=== PATIENT | female | born 1945 | race Caucasian/White ===

== ENCOUNTER → 2016-07-30 | Outpatient (REF) | payer MEDICARE ==
[2016-07-30 18:34] LABS: BASO % 0.4 % (0.0-1.0); EOS # 0.2 K/mm3 (0.0-0.50); EOS % 2.9 % (0.0-3.0); LARGE UNSTAINED CELL # 0.1 K/mm3 (0.0-0.4); LARGE UNSTAINED CELL % 1.7 % (0.0-4.0); LYMPH # 1.1 K/mm3 (1.5-4.5); LYMPH % 16.7 % (24.0-44.0); MEAN CORPUSCULAR HEMOGLOBIN 23.8 pg (27.0-33.0); MEAN CORPUSCULAR HGB CONC 30.2 g/dl (32.0-36.5); MEAN CORPUSCULAR VOLUME 78.7 fl (80.0-96.0); MONO # 0.3 K/mm3 (0.0-0.8); MONO % 5.1 % (0.0-5.0); NEUTROPHILS # 4.7 K/mm3 (1.8-7.7); NEUTROPHILS % 73.1 % (36.0-66.0); PLATELET COUNT, AUTOMATED 163 k/mm3 (150-450); RED CELL DISTRIBUTION WIDTH 15.3 % (11.5-14.5); WHITE BLOOD COUNT 6.4 K/mm3 (4.0-10.0)
[2016-07-30 19:10] LABS: ALBUMIN 3.1 GM/DL (3.2-5.2); ALBUMIN/GLOBULIN RATIO 0.94 (1.00-1.93); BILIRUBIN,TOTAL 0.3 MG/DL (0.2-1.0); CALCIUM LEVEL 8.6 MG/DL (8.8-10.2); CREATININE FOR GFR 1.23 MG/DL (0.55-1.02); GLOMERULAR FILTRATION RATE 45.8 (>39); POTASSIUM SERUM 4.1 MEQ/L (3.5-5.1); TOTAL PROTEIN 6.4 GM/DL (6.4-8.2)
== END | disposition home or self-care (01) ==
LOC: M SFHCCAPE 09:25
PROVIDERS: ATTEND Physician Assistant
DX: I10 Essential (primary) hypertension (principal); E11.9 Type 2 diabetes mellitus without complications; E78.5 Hyperlipidemia, unspecified; E55.9 Vitamin D deficiency, unspecified

== ENCOUNTER → 2016-08-27 | Outpatient (REF) | payer MEDICARE ==
[2016-08-27 14:42] LABS: PERCENT SATURATION 7.7 % (13.2-37.4)
== END ==
LOC: M LAB REF 13:40
PROVIDERS: ATTEND Internal Medicine Nephrology
DX: D50.9 Iron deficiency anemia, unspecified (principal)

== ENCOUNTER → 2016-11-11 | Outpatient (REF) | payer MEDICARE ==
[2016-11-11 18:46] LABS: ALBUMIN 3.1 GM/DL (3.2-5.2); ALBUMIN/GLOBULIN RATIO 0.94 (1.00-1.93); BILIRUBIN,TOTAL 0.2 MG/DL (0.2-1.0); CALCIUM LEVEL 8.8 MG/DL (8.8-10.2); CREATININE FOR GFR 1.25 MG/DL (0.55-1.02); GLOMERULAR FILTRATION RATE 44.8 (>39); PERCENT SATURATION 12.1 % (13.2-37.4); TOTAL PROTEIN 6.4 GM/DL (6.4-8.2)
[2016-11-11 19:57] LABS: BASO # 0.1 K/mm3 (0.0-0.2); BASO % 0.8 % (0.0-1.0); EOS # 0.1 K/mm3 (0.0-0.50); LARGE UNSTAINED CELL # 0.1 K/mm3 (0.0-0.4); LARGE UNSTAINED CELL % 1.7 % (0.0-4.0); LYMPH # 1.6 K/mm3 (1.5-4.5); LYMPH % 23.7 % (24.0-44.0); MEAN CORPUSCULAR HEMOGLOBIN 26.9 pg (27.0-33.0); MEAN CORPUSCULAR HGB CONC 32.1 g/dl (32.0-36.5); MEAN CORPUSCULAR VOLUME 83.8 fl (80.0-96.0); MONO # 0.4 K/mm3 (0.0-0.8); MONO % 5.1 % (0.0-5.0); NEUTROPHILS # 4.6 K/mm3 (1.8-7.7); NEUTROPHILS % 66.7 % (36.0-66.0); PLATELET COUNT, AUTOMATED 168 k/mm3 (150-450); RED CELL DISTRIBUTION WIDTH 16.6 % (11.5-14.5); WHITE BLOOD COUNT 6.9 K/mm3 (4.0-10.0)
== END ==
LOC: M SFHCCAPE 07:25
PROVIDERS: ATTEND Physician Assistant
DX: D64.9 Anemia, unspecified (principal)

== ENCOUNTER → 2017-02-17 | Outpatient (REF) | payer MEDICARE ==
[2017-02-17 17:05] LABS: ALBUMIN 3.3 GM/DL (3.2-5.2); ALBUMIN/GLOBULIN RATIO 0.97 (1.00-1.93); BILIRUBIN,TOTAL 0.3 MG/DL (0.2-1.0); CALCIUM LEVEL 9.2 MG/DL (8.8-10.2); CREATININE FOR GFR 1.31 MG/DL (0.55-1.02); GLOMERULAR FILTRATION RATE 42.5 (>39); POTASSIUM SERUM 4.5 MEQ/L (3.5-5.1); TOTAL PROTEIN 6.7 GM/DL (6.4-8.2)
[2017-02-17 19:09] LABS: BASO % 0.3 % (0.0-1.0); EOS # 0.2 K/mm3 (0.0-0.50); EOS % 3.3 % (0.0-3.0); LARGE UNSTAINED CELL # 0.1 K/mm3 (0.0-0.4); LARGE UNSTAINED CELL % 1.5 % (0.0-4.0); LYMPH # 1.4 K/mm3 (1.5-4.5); MEAN CORPUSCULAR HEMOGLOBIN 28.7 pg (27.0-33.0); MEAN CORPUSCULAR HGB CONC 34.2 g/dl (32.0-36.5); MEAN CORPUSCULAR VOLUME 83.9 fl (80.0-96.0); MONO # 0.4 K/mm3 (0.0-0.8); MONO % 5.2 % (0.0-5.0); NEUTROPHILS # 5.1 K/mm3 (1.8-7.7); NEUTROPHILS % 70.7 % (36.0-66.0); PLATELET COUNT, AUTOMATED 179 k/mm3 (150-450); RED CELL DISTRIBUTION WIDTH 14.7 % (11.5-14.5); WHITE BLOOD COUNT 7.1 K/mm3 (4.0-10.0)
== END ==
LOC: M SFHCCAPE 09:25
PROVIDERS: ATTEND Physician Assistant
DX: R74.8 Abnormal levels of other serum enzymes (principal); D64.9 Anemia, unspecified; I10 Essential (primary) hypertension; E11.9 Type 2 diabetes mellitus without complications; E78.5 Hyperlipidemia, unspecified; E55.9 Vitamin D deficiency, unspecified

== ENCOUNTER → 2017-04-27 | Outpatient (REF) | payer MEDICARE ==
[2017-04-27 17:31] LABS: MEAN CORPUSCULAR HEMOGLOBIN 28.2 pg (27.0-33.0); MEAN CORPUSCULAR HGB CONC 32.2 g/dl (32.0-36.5); MEAN CORPUSCULAR VOLUME 87.6 fl (80.0-96.0); PLATELET COUNT, AUTOMATED 177 10^3/uL (150-450); RED CELL DISTRIBUTION WIDTH 14.3 % (11.5-14.5)
[2017-04-27 17:57] LABS: CALCIUM LEVEL 9.1 MG/DL (8.8-10.2); CREATININE FOR GFR 1.54 MG/DL (0.55-1.02); GLOMERULAR FILTRATION RATE 35.3 (>39); POTASSIUM SERUM 4.1 MEQ/L (3.5-5.1)
== END ==
LOC: M LABDRWCV 16:30
PROVIDERS: ATTEND Internal Medicine Cardiovascular Disease
DX: I48.0 Paroxysmal atrial fibrillation (principal); E11.59 Type 2 diabetes mellitus with other circulatory complications; Z98.61 Coronary angioplasty status

== ENCOUNTER → 2017-05-18 | Outpatient (CLI) | payer MEDICARE ==
--- NOTE | 2017-05-19 16:08 | REP ---
BILATERAL KNEE SERIES: Five views of bilateral knees performed. No fracture or dislocation is seen bilaterally. On the right, there is moderate lateral joint space narrowing with subchondral sclerosis. There is mild diffuse spurring. There is slight medial joint space narrowing. There is mild diffuse chondrocalcinosis. There is mild patellofemoral compartment narrowing with subchondral sclerosis. There is mild superior patellar spurring. There is a small joint effusion. There are mild vascular calcifications posteriorly. On the left, there is mild medial joint space narrowing with subchondral sclerosis. There is mild diffuse spurring. There is mild patellofemoral compartment narrowing with subchondral sclerosis as well as a small spur of the superior pole of the patella. IMPRESSION: Bilateral degenerative changes as above. Small effusion on the right,
== END ==
LOC: M CLY 14:53
PROVIDERS: ATTEND Physician Assistant
DX: M17.0 Bilateral primary osteoarthritis of knee (principal); M25.461 Effusion, right knee

== ENCOUNTER → 2017-07-21 | Outpatient (CLI) | payer MEDICARE | LOC: M CLY 14:40 | DX: R05 Cough (principal); J84.10 Pulmonary fibrosis, unspecified | CPT/HCPCS: 71046 ==

== ENCOUNTER → 2017-09-15 | Outpatient (REF) | payer MEDICARE | LOC: M SFHCCAPE 12:19 | DX: L03.114 Cellulitis of left upper limb (principal) | CPT/HCPCS: 87070; 87186 ==

== ENCOUNTER → 2017-10-27 | Outpatient (REF) | payer MEDICARE ==
[2017-10-28 10:47] LABS: ALBUMIN 3.2 GM/DL (3.2-5.2); ALBUMIN/GLOBULIN RATIO 0.97 (1.00-1.93); ALKALINE PHOSPHATASE 136 U/L (45-117); ALT/SGPT 24 U/L (12-78); AST/SGOT 19 U/L (7-37); BILIRUBIN,DIRECT 0.1 MG/DL (0.0-0.2); BILIRUBIN,TOTAL 0.3 MG/DL (0.2-1.0); CHOLESTEROL LEVEL 149 MG/DL (<200); CPK CREATINE PHOSPHOKINASE 113 U/L (26-192); HDL CHOLESTEROL 39 MG/DL (>40); LDL CHOLESTEROL 61.4 MG/DL (<100); NON-HDL-C 110 MG/DL; TOTAL PROTEIN 6.5 GM/DL (6.4-8.2); TRIGLYCERIDES LEVEL 243 MG/DL (<150)
== END ==
LOC: M LAB REF 10:03
DX: E78.5 Hyperlipidemia, unspecified (principal); Z95.1 Presence of aortocoronary bypass graft
CPT/HCPCS: 82550

== ENCOUNTER → 2017-12-20 | Outpatient (REF) | payer MEDICARE ==
[2017-12-20 19:21] LABS: FERRITIN 21 NG/ML (8-252); IRON (FE) 46 UG/DL (50-170); PERCENT SATURATION 14.7 % (13.2-45.0); TOTAL IRON BINDING CAPACITY 312 UG/DL (250-450)
== END ==
LOC: M LAB REF 17:25
DX: D50.9 Iron deficiency anemia, unspecified (principal)
CPT/HCPCS: 83550

== ENCOUNTER → 2018-03-03 | Outpatient (REF) | payer MEDICARE ==
[2018-03-03 16:43] LABS: BASO % 0.4 % (0.0-1.0); EOS # 0.2 10^3/uL (0.0-0.50); EOS % 3.2 % (0.0-3.0); HEMATOCRIT 34.8 % (36.0-47.0); HEMOGLOBIN 10.9 g/dl (12.0-15.5); IMMATURE GRANULOCYTE % 0.6 % (0-3.0); LYMPH # 1.3 10^3/uL (1.5-4.5); LYMPH % 18.5 % (24.0-44.0); MEAN CORPUSCULAR HGB CONC 31.3 g/dl (32.0-36.5); MEAN CORPUSCULAR VOLUME 89.5 fl (80.0-96.0); MONO # 0.5 10^3/uL (0.0-0.8); MONO % 6.6 % (0.0-5.0); NEUTROPHILS # 5.1 10^3/uL (1.8-7.7); NEUTROPHILS % 70.7 % (36.0-66.0); PLATELET COUNT, AUTOMATED 154 10^3/uL (150-450); RED BLOOD COUNT 3.89 10^6/uL (4.00-5.40); RED CELL DISTRIBUTION WIDTH 14.9 % (11.5-14.5); WHITE BLOOD COUNT 7.2 10^3/uL (4.0-10.0)
[2018-03-03 17:04] LABS: ALBUMIN/GLOBULIN RATIO 0.91 (1.00-1.93); ALKALINE PHOSPHATASE 155 U/L (45-117); ALT/SGPT 22 U/L (12-78); ANION GAP 9 MEQ/L (8-16); AST/SGOT 15 U/L (7-37); BILIRUBIN,TOTAL 0.2 MG/DL (0.2-1.0); BLOOD UREA NITROGEN 34 MG/DL (7-18); CALCIUM LEVEL 8.5 MG/DL (8.8-10.2); CARBON DIOXIDE LEVEL 27 MEQ/L (21-32); CHLORIDE LEVEL 106 MEQ/L (98-107); CHOLESTEROL LEVEL 151 MG/DL (<200); CHOLESTEROL RISK RATIO 4.575 (<5); CREATININE FOR GFR 1.44 MG/DL (0.55-1.30); FREE T4 1.18 NG/DL (0.76-1.46); GLUCOSE, FASTING 143 MG/DL (70-100); HDL CHOLESTEROL 33 MG/DL (>40); LDL CHOLESTEROL 61 MG/DL (<100); NON-HDL-C 118 MG/DL; POTASSIUM SERUM 4.2 MEQ/L (3.5-5.1); SODIUM LEVEL 142 MEQ/L (136-145); TOTAL PROTEIN 6.3 GM/DL (6.4-8.2); TRIGLYCERIDES LEVEL 287 MG/DL (<150); URIC ACID 6.7 MG/DL (2.6-6.0)
[2018-03-03 17:05] LABS: ESTIMATED AVERAGE GLUCOSE 166 MG/DL (60-110); HEMOGLOBIN A1c 7.4 %
== END ==
LOC: M SFHCCAPE 08:36
DX: E78.5 Hyperlipidemia, unspecified (principal); E11.9 Type 2 diabetes mellitus without complications; I10 Essential (primary) hypertension
CPT/HCPCS: 84443

== ENCOUNTER → 2018-07-26 | Outpatient (REF) | payer MEDICARE ==
[2018-07-26 17:58] LABS: BASO % 0.5 % (0.0-1.0); EOS # 0.3 10^3/uL (0.0-0.50); EOS % 3.4 % (0.0-3.0); HEMOGLOBIN 11.5 g/dl (12.0-15.5); LYMPH # 1.4 10^3/uL (1.5-4.5); LYMPH % 17.9 % (24.0-44.0); MEAN CORPUSCULAR HEMOGLOBIN 29.1 pg (27.0-33.0); MEAN CORPUSCULAR HGB CONC 31.9 g/dl (32.0-36.5); MEAN CORPUSCULAR VOLUME 91.1 fl (80.0-96.0); MONO # 0.5 10^3/uL (0.0-0.8); MONO % 5.9 % (0.0-5.0); NEUTROPHILS # 5.8 10^3/uL (1.8-7.7); NEUTROPHILS % 71.7 % (36.0-66.0); PLATELET COUNT, AUTOMATED 172 10^3/uL (150-450); RED BLOOD COUNT 3.95 10^6/uL (4.00-5.40)
[2018-07-26 18:15] LABS: CREATININE, URINE 50.9 MG/DL; MALB URINE SIEMENS 10.5 MG/L; MAU/CREAT RATIO 20.6 MCG/MG (0.0-30.0)
[2018-07-26 18:35] LABS: ALBUMIN 3.3 GM/DL (3.2-5.2); ALT/SGPT 28 U/L (12-78); BILIRUBIN,DIRECT < 0.1 MG/DL (0.0-0.2); BILIRUBIN,TOTAL 0.3 MG/DL (0.2-1.0); BLOOD UREA NITROGEN 32 MG/DL (7-18); CALCIUM LEVEL 8.8 MG/DL (8.8-10.2); CARBON DIOXIDE LEVEL 24 MEQ/L (21-32); CHLORIDE LEVEL 105 MEQ/L (98-107); CHOLESTEROL LEVEL 167 MG/DL (<200); CHOLESTEROL RISK RATIO 4.638 (<5); CREATININE FOR GFR 1.68 MG/DL (0.55-1.30); GAMMA GLUTAMYLTRANSPEPTIDASE 45 U/L (5-55); GLOMERULAR FILTRATION RATE 31.8 (>39); GLUCOSE, FASTING 130 MG/DL (70-100); HDL CHOLESTEROL 36 MG/DL (>40); LDL CHOLESTEROL 59 MG/DL (<100); NON-HDL-C 131 MG/DL; POTASSIUM SERUM 4.6 MEQ/L (3.5-5.1); SODIUM LEVEL 138 MEQ/L (136-145); TOTAL PROTEIN 6.5 GM/DL (6.4-8.2); TRIGLYCERIDES LEVEL 358 MG/DL (<150)
[2018-07-27 08:58] LABS: TOTAL 25(OH) VITAMIN D 92.7 NG/ML (30.0-100.0)
== END ==
LOC: M SFHCCAPE 08:34
PROVIDERS: ATTEND Physician Assistant
DX: E78.5 Hyperlipidemia, unspecified (principal); R74.8 Abnormal levels of other serum enzymes; E11.9 Type 2 diabetes mellitus without complications; E55.9 Vitamin D deficiency, unspecified

== ENCOUNTER → 2018-08-09 | Outpatient (CLI) | payer MEDICARE ==
--- NOTE | 2018-08-09 15:44 | REP ---
Chest two views HISTORY: Acute respiratory infection Comparison: 07/21/2017 A calcified granuloma is present in the left upper lobe. The right lung is clear. The cardiac silhouette is enlarged. The pulmonary vasculature is normal in appearance. Degenerative change is present in the thoracic spine. IMPRESSION: Cardiomegaly.
== END ==
LOC: M CLY 14:47
PROVIDERS: ATTEND Physician Assistant
DX: I51.7 Cardiomegaly (principal); J22 Unspecified acute lower respiratory infection

== ENCOUNTER → 2018-09-20 | Outpatient (CLI) | payer MEDICARE ==
--- NOTE | 2018-09-20 19:41 | REP ---
BILATERAL LOWER EXTREMITY ARTERIAL DOPPLER ULTRASOUND: Real-time ultrasound evaluation and duplex Doppler interrogation of bilateral lower extremity arterial systems is performed. LIUDMILA right less than 0.7 and left 0.65. There is severe atherosclerotic plaquing diffusely bilaterally. Iliac vessels could not be visualized due to patient body habitus. There are monophasic wave forms bilaterally in all of the lower extremity arteries suggesting more proximal iliac narrowing bilaterally. Elevated peak systolic velocities in the mid to distal right superficial femoral arteries suggest significant stenosis at those locations. There is also occlusion noted of the proximal left superficial femoral artery which is reconstituted via the profunda collateral vessels distally. RIGHT LEFT Common femoral artery 162.8 cm/s 30.2 cm/s Profunda 72.7 cm/s 122.9 cm/s Proximal SFA 168.3 cm/s occluded Mid SFA 237 cm/s 60 cm/s Distal SFA 249.5 cm/s 61.8 cm/s Popliteal 49.5 cm/s 36.3 cm/s Proximal DOMO 59.3 cm/s 18.7 cm/s Tibioperoneal trunk 40.3 cm/s 35.9 cm/s Proximal COMMUNITY WORKER 22 cm/s 28.7 cm/s Distal COMMUNITY WORKER 37.9 cm/s 34.5 cm/s Distal DOMO 56.9 cm/s 12.1 cm/s IMPRESSION: Severe atherosclerotic plaquing and narrowing bilaterally with apparent significant stenosis of the mid to distal right superficial femoral artery. There is occlusion of the proximal left superficial femoral artery with reconstitution of the more distal superficial femoral artery. Electronically Signed by Bradley Foreman MD 09/21/2018 10:34 A
== END ==
LOC: M RAD 13:18
PROVIDERS: ATTEND Surgery Vascular Surgery
DX: I70.213 Atherosclerosis of native arteries of extremities with intermittent claudication, bilateral legs (principal)

== ENCOUNTER → 2018-10-13 | Outpatient (REF) | payer MEDICARE | LOC: M LAB REF 13:26 | PROVIDERS: ATTEND Internal Medicine Nephrology | DX: D50.9 Iron deficiency anemia, unspecified (principal) ==

== ENCOUNTER → 2018-10-17 | Outpatient (CLI) | payer MEDICARE ==
[~2018-10-17] MED LIST: BUPIVACAINE HCL 0.5% 10 ML VIAL As Ordered ONE; HEPARIN 1,000 UNITS/ML 10ML VIAL (FOR RADIOLOGY& DIALYSIS ONLY) As Ordered ONE; ISOVUE-300 61% 100ML VIAL (Q9967) As Ordered ONE; LIDOCAINE 2% MDV 20 ML VIAL As Ordered ONE; MIDAZOLAM INJ 2 MG/2 ML VIAL (J2250) As Ordered ONE; diphenhydrAMINE INJ 50MG/ML VIAL (J1200) As Ordered ONE; fentaNYL 100 MCG/2 ML INJECTION (J3010) As Ordered ONE
--- NOTE | 2018-11-05 12:12 | REPIR ---
DATE OF PROCEDURE: 10/17/2018 ATTENDING SURGEON: Jeffrey Kim MD PREOPERATIVE DIAGNOSIS: Bilateral lower extremity claudication, right greater left. POSTOPERATIVE DIAGNOSIS: Bilateral lower extremity claudication, right greater left. PROCEDURE: Left common femoral arterial cannulation, selective right common femoral artery catheter placement, right lower extremity angiogram, Mynx closure of the left common femoral arteriotomy. DESCRIPTION OF PROCEDURE: The patient was taken to the angiography suite, placed supine, and prepped and draped in a standard surgical fashion. The left common femoral artery was cannulated. Catheter was advanced up and over the bifurcation, placed in the right common femoral artery, and a right lower extremity angiogram was performed. This showed severe atherosclerotic arterial occlusive disease. Catheter was then removed, and a Mynx closure device was used to close the arteriotomy in the left common femoral artery with an additional 10 minutes of adjunctive pressure applied for hemostasis. Dressings were then applied. The patient tolerated the procedure well. All instrument, sponge, and needle counts were correct at the end of the case. There were no complications. Dr. Kmi was present for and directed the entire case. The patient was transferred to the holding area and subsequent discharged in stable condition.
== END | disposition home or self-care (01) ==
LOC: M IRPRO 08:44
PROVIDERS: ATTEND Surgery Vascular Surgery
DX: I70.211 Atherosclerosis of native arteries of extremities with intermittent claudication, right leg (principal)
CPT/HCPCS: 36246; 75710; C1760; C1769; C1887; C1894; G0269; Q9967

== ENCOUNTER 2018-12-13 18:06 | Emergency (ER) | payer MEDICARE ==
[~2018-12-13] VITALS: Ht 152.4 cm; Wt 109.0 kg
[2018-12-13] MEDS ORDERED: MULTCAP PO (19:21)
[2018-12-13] MEDS ORDERED: ASPI81TA85 PO (19:21)
[2018-12-13] MEDS ORDERED: MAGN400T2 PO (19:21)
[2018-12-13] MEDS ORDERED: ALLO10TA PO (19:21)
[2018-12-13] MEDS ORDERED: LISI-672 PO (19:21)
[2018-12-13] MEDS ORDERED: XARE15TA PO (19:21)
[2018-12-13] MEDS ORDERED: VITA50005 PO (19:21)
[2018-12-13] MEDS ORDERED: GLIP5TAB20 PO (19:21)
[2018-12-13] MEDS ORDERED: SPIR1TAB34 PO (19:21)
[2018-12-13] MEDS ORDERED: IRON1TAB2 PO (19:21)
[2018-12-13] MEDS ORDERED: FISH1000 PO (19:21)
[2018-12-13] MEDS ORDERED: OMEP40CA2 PO (19:21)
[2018-12-13] MEDS ORDERED: POTA10CA32 PO (19:21)
[2018-12-13] MEDS ORDERED: ROSU5TAB5 PO (19:21)
[2018-12-13] MEDS ORDERED: CBD OIL PO (19:21)
[2018-12-13] MEDS ORDERED: AMLO5TAB6 PO (19:21)
[2018-12-13] MEDS ORDERED: CARV12.5 PO (19:21)
[2018-12-13] MEDS ORDERED: COLA100C5 PO (19:21)
[2018-12-13 20:57] LABS: CREATININE FOR GFR 1.62 MG/DL (0.55-1.30); GLOMERULAR FILTRATION RATE 33.1 (>39); POTASSIUM SERUM 6.7 MEQ/L (3.5-5.1)
[2018-12-13 21:20] VITALS: BP 141/63
[2018-12-13] MEDS ORDERED: SOD POLYSTYRENE SULFONATE SUSP 15 GM/60 ML UD PO ONE (22:00)
== END 2018-12-13 21:28 | disposition home or self-care (01) ==
LOC: M ED 18:06
DX: E87.5 Hyperkalemia (principal); I48.91 Unspecified atrial fibrillation; I10 Essential (primary) hypertension; K21.9 Gastro-esophageal reflux disease without esophagitis; D50.9 Iron deficiency anemia, unspecified; Z88.6 Allergy status to analgesic agent; Z79.899 Other long term (current) drug therapy; Z79.01 Long term (current) use of anticoagulants; Z79.82 Long term (current) use of aspirin; I70.213 Atherosclerosis of native arteries of extremities with intermittent claudication, bilateral legs

== ENCOUNTER → 2018-12-13 | Outpatient (CLI) | payer MEDICARE ==
[~2018-12-13] MED LIST changes: +ALLO10TA PO; +AMLO5TAB6 PO; +ASPI81TA85 PO; -BUPIVACAINE HCL 0.5% 10 ML VIAL As Ordered ONE; +CARV12.5 PO; +CBD OIL PO; +COLA100C5 PO; +FISH1000 PO; +GLIP5TAB20 PO; -HEPARIN 1,000 UNITS/ML 10ML VIAL (FOR RADIOLOGY& DIALYSIS ONLY) As Ordered ONE; +IRON1TAB2 PO; -ISOVUE-300 61% 100ML VIAL (Q9967) As Ordered ONE; -LIDOCAINE 2% MDV 20 ML VIAL As Ordered ONE; +LISI-672 PO; +MAGN400T2 PO; -MIDAZOLAM INJ 2 MG/2 ML VIAL (J2250) As Ordered ONE; +MULTCAP PO; +OMEP40CA2 PO; +POTA10CA32 PO; +ROSU5TAB5 PO; +SPIR1TAB34 PO; +VITA50005 PO; +XARE15TA PO; -diphenhydrAMINE INJ 50MG/ML VIAL (J1200) As Ordered ONE; -fentaNYL 100 MCG/2 ML INJECTION (J3010) As Ordered ONE
[2018-12-13 15:32] LABS: BASO % 0.2 % (0.0-1.0); EOS # 0.2 10^3/uL (0.0-0.50); EOS % 2.3 % (0.0-3.0); HEMATOCRIT 38.7 % (36.0-47.0); HEMOGLOBIN 12.4 g/dl (12.0-15.5); LYMPH # 1.4 10^3/uL (1.5-4.5); LYMPH % 14.1 % (24.0-44.0); MEAN CORPUSCULAR HEMOGLOBIN 29.7 pg (27.0-33.0); MEAN CORPUSCULAR VOLUME 92.8 fl (80.0-96.0); MONO # 0.5 10^3/uL (0.0-0.8); MONO % 5.2 % (0.0-5.0); NEUTROPHILS # 7.4 10^3/uL (1.8-7.7); NEUTROPHILS % 77.8 % (36.0-66.0); PLATELET COUNT, AUTOMATED 151 10^3/uL (150-450); RED BLOOD COUNT 4.17 10^6/uL (4.00-5.40); WHITE BLOOD COUNT 9.6 10^3/uL (4.0-10.0)
[2018-12-13 16:13] LABS: CALCIUM LEVEL 9.4 MG/DL (8.8-10.2); CREATININE FOR GFR 1.6 MG/DL (0.55-1.30); GLOMERULAR FILTRATION RATE 33.5 (>39); POTASSIUM SERUM 6.4 MEQ/L (3.5-5.1)
== END ==
LOC: M LAB 15:02
PROVIDERS: ATTEND Physician Assistant
DX: I70.213 Atherosclerosis of native arteries of extremities with intermittent claudication, bilateral legs (principal)

== ENCOUNTER → 2018-12-14 | Outpatient (REF) | payer MEDICARE ==
[2018-12-14 17:15] LABS: MAGNESIUM LEVEL 1.6 MG/DL (1.8-2.4); POTASSIUM SERUM 5.4 MEQ/L (3.5-5.1)
== END ==
LOC: M SFHCCAPE 11:58
PROVIDERS: ATTEND Physician Assistant
DX: E87.5 Hyperkalemia (principal)

== ENCOUNTER → 2018-12-15 | Outpatient (REF) | payer MEDICARE ==
[2018-12-15 16:58] LABS: MAGNESIUM LEVEL 1.7 MG/DL (1.8-2.4); POTASSIUM SERUM 5.3 MEQ/L (3.5-5.1)
== END ==
LOC: M SFHCCAPE 11:34
PROVIDERS: ATTEND Physician Assistant
DX: E87.5 Hyperkalemia (principal); E83.42 Hypomagnesemia

== ENCOUNTER → 2018-12-19 | Outpatient (REF) | payer MEDICARE ==
[~2018-12-19] MED LIST changes: -OMEP40CA2 PO; +OMEP40CA97 PO
[2018-12-19 17:00] LABS: MAGNESIUM LEVEL 1.7 MG/DL (1.8-2.4); POTASSIUM SERUM 5.4 MEQ/L (3.5-5.1)
== END ==
LOC: M SFHCCAPE 11:28
PROVIDERS: ATTEND Physician Assistant
DX: E87.6 Hypokalemia (principal)

== ENCOUNTER → 2018-12-22 | Outpatient (REF) | payer MEDICARE ==
[~2018-12-22] MED LIST changes: +OMEP40CA2 PO; -OMEP40CA97 PO
== END ==
LOC: M SFHCCAPE 10:34
PROVIDERS: ATTEND Physician Assistant
DX: E87.6 Hypokalemia (principal)

== ENCOUNTER → 2018-12-27 | Outpatient (REF) | payer MEDICARE ==
[2018-12-27 16:59] LABS: MAGNESIUM LEVEL 1.9 MG/DL (1.8-2.4); POTASSIUM SERUM 5.2 MEQ/L (3.5-5.1)
== END ==
LOC: M SFHCCAPE 10:53
PROVIDERS: ATTEND Physician Assistant
DX: E87.5 Hyperkalemia (principal)

== ENCOUNTER → 2019-01-02 | Outpatient (REF) | payer MEDICARE | LOC: M SFHCCAPE 10:54 | PROVIDERS: ATTEND Physician Assistant | DX: E87.5 Hyperkalemia (principal) ==

== ENCOUNTER → 2019-01-09 | Outpatient (REF) | payer MEDICARE | LOC: M SFHCCAPE 10:59 | PROVIDERS: ATTEND Physician Assistant | DX: E87.5 Hyperkalemia (principal) ==

== ENCOUNTER → 2019-05-03 | Outpatient (REF) | payer MEDICARE ==
[~2019-05-03] MED LIST changes: -OMEP40CA2 PO; +OMEP40CA97 PO
[2019-05-03 18:06] LABS: BASO % 0.6 % (0.0-1.0); EOS # 0.2 10^3/uL (0.0-0.5); EOS % 3.3 % (0.0-3.0); HEMATOCRIT 35.4 % (36.0-47.0); HEMOGLOBIN 11.2 g/dl (12.0-15.5); LYMPH # 1.3 10^3/uL (1.5-5.0); LYMPH % 19.8 % (24.0-44.0); MEAN CORPUSCULAR HEMOGLOBIN 29.2 pg (27.0-33.0); MEAN CORPUSCULAR HGB CONC 31.6 g/dl (32.0-36.5); MEAN CORPUSCULAR VOLUME 92.4 fl (80.0-96.0); MONO # 0.4 10^3/uL (0.0-0.8); MONO % 6.6 % (0.0-5.0); NEUTROPHILS # 4.6 10^3/uL (1.5-8.5); NEUTROPHILS % 68.9 % (36.0-66.0); PLATELET COUNT, AUTOMATED 151 10^3/uL (150-450); RED BLOOD COUNT 3.83 10^6/uL (4.00-5.40); WHITE BLOOD COUNT 6.7 10^3/uL (4.0-10.0)
[2019-05-03 18:12] LABS: BILIRUBIN,TOTAL 0.4 MG/DL (0.2-1.0); CHOLESTEROL RISK RATIO 4.2 (<5); CREATININE FOR GFR 1.58 MG/DL (0.55-1.30); POTASSIUM SERUM 4.5 MEQ/L (3.5-5.1); THYROID STIMULATING HORMONE 1.3 uIU/ML (0.358-3.740); TOTAL PROTEIN 6.2 GM/DL (6.4-8.2)
[2019-05-03 18:16] LABS: TOTAL 25(OH) VITAMIN D 96.1 NG/ML (30.0-100.0)
[2019-05-03 18:31] LABS: CREATININE, URINE 65.3 MG/DL; MALB URINE SIEMENS 17.9 MG/L; MAU/CREAT RATIO 27.4 MCG/MG (0.0-30.0)
[2019-05-03 19:03] LABS: HEMOGLOBIN A1c 7.8 %
== END ==
LOC: M SFHCCAPE 10:46
PROVIDERS: ATTEND Physician Assistant
DX: E78.5 Hyperlipidemia, unspecified (principal); E11.9 Type 2 diabetes mellitus without complications; E55.9 Vitamin D deficiency, unspecified

== ENCOUNTER → 2019-08-14 | Outpatient (REF) | payer MEDICARE ==
[2019-08-14 16:49] LABS: BASO # 0.1 10^3/uL (0.0-0.2); BASO % 0.6 % (0.0-1.0); EOS # 0.3 10^3/uL (0.0-0.5); EOS % 3.7 % (0.0-3.0); HEMOGLOBIN 11.7 g/dl (12.0-15.5); LYMPH # 1.2 10^3/uL (1.5-5.0); LYMPH % 14.9 % (24.0-44.0); MEAN CORPUSCULAR HEMOGLOBIN 30.1 pg (27.0-33.0); MEAN CORPUSCULAR HGB CONC 32.5 g/dl (32.0-36.5); MEAN CORPUSCULAR VOLUME 92.5 fl (80.0-96.0); MONO # 0.5 10^3/uL (0.0-0.8); MONO % 5.8 % (0.0-5.0); NEUTROPHILS % 73.9 % (36.0-66.0); PLATELET COUNT, AUTOMATED 162 10^3/uL (150-450); RED BLOOD COUNT 3.89 10^6/uL (4.00-5.40); WHITE BLOOD COUNT 8.1 10^3/uL (4.0-10.0)
[2019-08-14 17:15] LABS: ALBUMIN 3.1 GM/DL (3.2-5.2); BILIRUBIN,TOTAL 0.3 MG/DL (0.2-1.0); CALCIUM LEVEL 8.8 MG/DL (8.8-10.2); CHOLESTEROL RISK RATIO 3.815 (<5); CREATININE FOR GFR 1.37 MG/DL (0.55-1.30); GLOMERULAR FILTRATION RATE 40.1 (>39); POTASSIUM SERUM 4.8 MEQ/L (3.5-5.1); TOTAL PROTEIN 6.5 GM/DL (6.4-8.2)
[2019-08-14 17:26] LABS: CREATININE, URINE 30.7 MG/DL; MAU/CREAT RATIO 104.2 MCG/MG (0.0-30.0)
[2019-08-14 17:45] LABS: HEMOGLOBIN A1c 7.9 %
== END ==
LOC: M SFHCCAPE 10:19
PROVIDERS: ATTEND Physician Assistant
DX: E11.8 Type 2 diabetes mellitus with unspecified complications (principal)

== ENCOUNTER → 2020-09-12 | Outpatient (REF) | payer MEDICARE ==
[~2020-09-12] MED LIST changes: +AMLO1TAB24 PO; -AMLO5TAB6 PO; -ASPI81TA85 PO; +ASPI81TA86 PO; -LISI-672 PO; +LISI30TA4 PO
[2020-09-12 17:05] LABS: BASO % 0.3 % (0.0-1.0); EOS # 0.3 10^3/uL (0.0-0.5); EOS % 3.8 % (0.0-3.0); HEMATOCRIT 34.7 % (36.0-47.0); LYMPH # 1.4 10^3/uL (1.5-5.0); MEAN CORPUSCULAR HEMOGLOBIN 29.2 pg (27.0-33.0); MEAN CORPUSCULAR HGB CONC 31.7 g/dl (32.0-36.5); MONO # 0.6 10^3/uL (0.0-0.8); MONO % 6.6 % (2.0-8.0); NEUTROPHILS # 6.6 10^3/uL (1.5-8.5); NEUTROPHILS % 73.7 % (36.0-66.0); PLATELET COUNT, AUTOMATED 166 10^3/uL (150-450); RED BLOOD COUNT 3.77 10^6/uL (4.00-5.40)
[2020-09-12 19:22] LABS: HEMOGLOBIN A1c 6.4 %
[2020-09-12 20:42] LABS: CREATININE, URINE 33.5 MG/DL; MALB URINE SIEMENS < 5.0 MG/L; MAU/CREAT RATIO 14.9 MCG/MG (0.0-30.0)
[2020-09-12 23:08] LABS: ALBUMIN 3.3 GM/DL (3.2-5.2); BILIRUBIN,TOTAL 0.4 MG/DL (0.2-1.0); CALCIUM LEVEL 9.4 MG/DL (8.8-10.2); CHOLESTEROL RISK RATIO 4.294 (<5); CREATININE FOR GFR 1.74 MG/DL (0.55-1.30); GLOMERULAR FILTRATION RATE 30.4 (>39); POTASSIUM SERUM 4.3 MEQ/L (3.5-5.1); THYROID STIMULATING HORMONE 1.06 uIU/ML (0.358-3.740); TOTAL PROTEIN 6.4 GM/DL (6.4-8.2)
== END ==
LOC: M SFHCCAPE 07:51
PROVIDERS: ATTEND Physician Assistant
DX: E11.8 Type 2 diabetes mellitus with unspecified complications (principal); E78.5 Hyperlipidemia, unspecified

== ENCOUNTER → 2020-09-27 | Outpatient (REF) | payer MEDICARE ==
[2020-09-27 18:12] LABS: PERCENT SATURATION 14.3 % (13.2-45.0)
== END ==
LOC: M LAB REF 17:06
PROVIDERS: ATTEND Internal Medicine Nephrology
DX: D50.9 Iron deficiency anemia, unspecified (principal); R74.8 Abnormal levels of other serum enzymes

== ENCOUNTER → 2020-12-09 | Outpatient (REF) | payer MEDICARE ==
[~2020-12-09] MED LIST changes: +OMEP40CA4 PO; -OMEP40CA97 PO
== END ==
LOC: M LAB REF 17:27
PROVIDERS: ATTEND Internal Medicine Nephrology
DX: E83.42 Hypomagnesemia (principal)

== ENCOUNTER 2021-01-13 16:13 | Inpatient (IN) | payer MEDICARE ==
[~2021-01-13] VITALS: Ht 152.4 cm; Wt 93.6 kg
[2021-01-13 19:52] LABS: BASO % 0.5 % (0.0-1.0); EOS # 0.1 10^3/uL (0.0-0.5); EOS % 1.9 % (0.0-3.0); HEMATOCRIT 25.8 % (36.0-47.0); HEMOGLOBIN 8.3 g/dl (12.0-15.5); LYMPH # 0.9 10^3/uL (1.5-5.0); LYMPH % 16.2 % (24.0-44.0); MEAN CORPUSCULAR HGB CONC 32.2 g/dl (32.0-36.5); MEAN CORPUSCULAR VOLUME 90.2 fl (80.0-96.0); MONO # 0.6 10^3/uL (0.0-0.8); MONO % 9.9 % (2.0-8.0); NEUTROPHILS % 70.8 % (36.0-66.0); PLATELET COUNT, AUTOMATED 158 10^3/uL (150-450); RED BLOOD COUNT 2.86 10^6/uL (4.00-5.40); WHITE BLOOD COUNT 5.7 10^3/uL (4.0-10.0)
[2021-01-13 20:03] LABS: ALBUMIN 3.1 GM/DL (3.2-5.2); BILIRUBIN,DIRECT 0.2 MG/DL (0.0-0.2); BILIRUBIN,TOTAL 0.4 MG/DL (0.2-1.0)
[2021-01-13 20:07] LABS: INR 1.16; PROTHROMBIN TIME 15.2 SECONDS (12.7-14.5)
[2021-01-13 20:08] LABS: PARTIAL THROMBOPLASTIN TIME 42.3 SECONDS (25.9-37.0)
[2021-01-13] MEDS: GASTROGRAFIN SOLUTION 30ML PO SCH ×3 (20:30→21:12)
[2021-01-13] MEDS ORDERED: ISOVUE-370 76% 100ML VIAL As Ordered ONE (21:55)
--- NOTE | 2021-01-13 23:06 | REPVR ---
PROCEDURE INFORMATION: Exam: CT Abdomen And Pelvis Without Contrast Exam date and time: 01/13/2021 10:08 PM Age: 75 years old Clinical indication: Abdominal pain; Generalized; Additional info: Mid abdominal pain/rectal bleeding/diarrhea; R/O diverticuli TECHNIQUE: Imaging protocol: Computed tomography of the abdomen and pelvis without contrast. Radiation optimization: All CT scans at this facility use at least one of these dose optimization techniques: automated exposure control; mA and/or kV adjustment per patient size (includes targeted exams where dose is matched to clinical indication); or iterative reconstruction. Other contrast: Oral; COMPARISON: CT ABD PELVIS W/O CONTRAST 02/29/2016 6:04 PM FINDINGS: Liver: Normal. No mass. Gallbladder and bile ducts: Layering sludge or faint stones in the gallbladder. Pancreas: Normal. No ductal dilation. Spleen: Multiple splenic calcifications are noted. Adrenal glands: Right adrenal nodule measuring 2.4 x 2.7 x 2.7 cm with a Hounsfield measurement of -2 which is similar to 02/29/2016 consistent with adenoma. No follow-up is needed. Kidneys and ureters: There are some right renal cysts measuring approximately 10 mm which are redemonstrated since the prior study and may be slightly increased. Stomach and bowel: Mild colonic diverticulosis, greatest in the sigmoid without diverticulitis. Appendix: A normal appendix is seen. Intraperitoneal space: Unremarkable. No free air. No significant fluid collection. Vasculature: There is moderate atherosclerotic calcification of the abdominal aorta with extension into the iliac arteries. Lymph nodes: Unremarkable. No enlarged lymph nodes. Urinary bladder: Unremarkable as visualized. Reproductive: Status post hysterectomy. Bones/joints: Unremarkable. No acute fracture. Soft tissues: Moderate fat filled right periumbilical hernia. IMPRESSION: 1. Layering faint stones or sludge in the gallbladder. 2. Right adrenal adenoma which is unchanged from 02/29/2016. 3. Old granulomatous disease of the spleen. 4. Mild colonic diverticulosis, greatest in the sigmoid without diverticulitis. 5. Status post hysterectomy. Electronically signed by: Antony López On 01/13/2021 23:06:02 PM
[2021-01-14] VITALS (11 sets, daily range): BP systolic 105–145; BP diastolic 54–80
[2021-01-14 00:17] LABS: BASO % 0.5 % (0.0-1.0); EOS # 0.2 10^3/uL (0.0-0.5); EOS % 2.3 % (0.0-3.0); HEMATOCRIT 26.4 % (36.0-47.0); HEMOGLOBIN 8.6 g/dl (12.0-15.5); LYMPH # 1.2 10^3/uL (1.5-5.0); LYMPH % 16.5 % (24.0-44.0); MEAN CORPUSCULAR HEMOGLOBIN 29.2 pg (27.0-33.0); MEAN CORPUSCULAR HGB CONC 32.6 g/dl (32.0-36.5); MEAN CORPUSCULAR VOLUME 89.5 fl (80.0-96.0); MONO # 0.8 10^3/uL (0.0-0.8); MONO % 10.1 % (2.0-8.0); NEUTROPHILS # 5.2 10^3/uL (1.5-8.5); NEUTROPHILS % 69.4 % (36.0-66.0); PLATELET COUNT, AUTOMATED 176 10^3/uL (150-450); RED BLOOD COUNT 2.95 10^6/uL (4.00-5.40); WHITE BLOOD COUNT 7.5 10^3/uL (4.0-10.0)
[2021-01-14] MEDS ORDERED: MAGN1TAB26 PO (00:20)
[2021-01-14] MEDS ORDERED: FERR1TAB8 PO (00:20)
[2021-01-14] MEDS ORDERED: ERGO500029 PO (00:20)
[2021-01-14] MEDS ORDERED: NITR4TASL SL (00:20)
[2021-01-14] MEDS ORDERED: FISH1000 PO (00:20)
[2021-01-14] MEDS ORDERED: ASPI-161 PO (00:20)
[2021-01-14] MEDS ORDERED: LISI20TA33 PO (00:20)
[2021-01-14] MEDS ORDERED: SPIR1TAB34 PO ×2 (00:20)
[2021-01-14] MEDS ORDERED: CARV25TA PO (00:20)
[2021-01-14] MEDS ORDERED: ALLO100T PO (00:20)
[2021-01-14] MEDS ORDERED: XARE15TA PO (00:20)
[2021-01-14] MEDS ORDERED: VITMTA PO (00:20)
[2021-01-14] MEDS ORDERED: DOCU100C16 PO (00:20)
[2021-01-14] MEDS ORDERED: OMEP-221 PO (00:20)
[2021-01-14] MEDS ORDERED: AMLO1TAB24 PO (00:20)
[2021-01-14] MEDS ORDERED: GLIP5TAB20 PO (00:20)
[2021-01-14] MEDS ORDERED: ROSU5TAB5 PO (00:20)
[2021-01-14] MEDS ORDERED: HOME MED LIST COMPLETE! XX SCH (00:25)
[2021-01-14 00:43] LABS: RSV AMPLIFICATION NEGATIVE (NEGATIVE)
[2021-01-14 00:48] LABS: FERRITIN 70 NG/ML (8-252); IRON (FE) 36 UG/DL (50-170); TOTAL IRON BINDING CAPACITY 301 UG/DL (250-450)
[2021-01-14] MEDS: PANTOPRAZOLE 40MG VIAL (C9113 PER 1) IV SCH ×3 (00:59→21:05)
[2021-01-14] MEDS ORDERED: DEXTROSE 50% 50 ML SYRINGE IV PRN (02:35)
[2021-01-14] MEDS ORDERED: GLUCOSE 4GM CHEW TABLET PO PRN (02:35)
[2021-01-14] MEDS ORDERED: NS 1,000 ML IV SCH (02:35)
[2021-01-14] MEDS ORDERED: GLUCAGON INJ 1MG VIAL SC PRN (02:35)
--- NOTE | 2021-01-14 02:43 | HPEPDOC ---
General Date of Admission Jan 13, 2021 at 23:42 Date of Service: Jan 13, 2021 Chief Complaint The patient is a 75-year-old female admitted with a reason for visit of Gi Bleeding. Source: Patient, Family (Daughter at bedside) History of Present Illness Christina Greco is a 75-year-old female with significant history of paroxysmal A. fib, hypertension, anxiety, DENIA, diabetes and GERD who presents from her PCPs request due to bloody diarrhea for 7 days. Patient well-appearing and pleasantly talkative with daughter at bedside. Patient reports that she has had dark brownish-red bowel movements for the past week. She does endorse that she is on iron because she has iron deficiency anemia. Because of the coloration for how long and her hemoglobin level of 8.6 she was encouraged to come in. Pt denies chaudhary, sinus congestion, sore throat, productive cough, sob, palpitations, chest pain, n/v, weakness, sensory changes or syncope. Patient does endorse mild abdominal tenderness with palpation. She reports she has a history of hernia and that abdominal exams left her sore. Of note, patient normotensive and not tachycardic. Hemoglobin 8.3 and previous on file from August was 11. CT abdomen pelvis nonacute. Patient will be admitted for further evaluation and management of presenting concerns Home Medications Scheduled Allopurinol (Allopurinol) 100 Mg Tablet, 100 MG PO DAILY, (Reported) Amlodipine Besylate (Amlodipine Besylate) 5 Mg Tablet, 5 MG PO DAILY, (Reported) Aspirin (Aspirin EC) 81 Mg Tablet.dr, 81 MG PO DAILY, (Reported) Carvedilol (Carvedilol) 25 Mg Tablet, 12.5 MG PO BID, (Reported) Docusate Sodium (Docusate Sodium) 100 Mg Capsule, 100 MG PO QHS, (Reported) Ergocalciferol (Vitamin D2) (Vitamin D2) 50,000 Units Cap, 50,000 UNITS PO QWEEK, (Reported) WEDNESDAY MORNINGS Ferrous Sulfate (Ferrous Sulfate) 325 Mg Tablet, 325 MG PO BID, (Reported) Glipizide (Glipizide ER) 5 Mg Tab.er.24, 5 MG PO DAILY, (Reported) Lisinopril (Lisinopril) 20 Mg Tablet, 20 MG PO BID, (Reported) Magnesium Oxide (Magnesium Oxide) 400 Mg Tablet, 400 MG PO TID, (Reported) Multivitamins (Thera M Plus Tablet) 1 Each Tablet, 1 TAB PO DAILY, (Reported) [place]-3 Fatty Acids/Fish Oil (Fish Oil 1,000 mg Capsule) 1 Each Capsule, 3,000 MG PO DAILY, (Reported) Omeprazole (Omeprazole) 40 Mg Capsule.dr, 40 MG PO BID, (Reported) Rivaroxaban (Xarelto) 15 Mg Tablet, 15 MG PO QHS, (Reported) Rosuvastatin Calcium (Rosuvastatin Calcium) 5 Mg Tablet, 5 MG PO DAILY, (Reported) Spironolact/Hydrochlorothiazid (Spironolactone-Hctz 25-25 Tab) 1 Each Tablet, 0 .5 TAB PO 3XW, (Reported) WEDNESDAY/WEDNESDAY/WEDNESDAY Spironolact/Hydrochlorothiazid (Spironolactone-Hctz 25-25 Tab) 1 Each Tablet, 1 TAB PO 4XWK, (Reported) WEDNESDAY/WEDNESDAY/WEDNESDAY/WEDNESDAY Scheduled PRN Nitroglycerin (Nitrostat) 0.4 Mg Tab.subl, 0.4 MG SL NITRO PRN for CHEST PAIN, (Reported) Allergies Coded Allergies: ibuprofen (Verified Allergy, Severe, tongue swelling, 12/13/18) Past Medical History Medical History afib, gerd, DENIA, diverticulosis, diabetes Surgical History Hysterectomy, cardiac stent Family History Significant Family History: No pertinent family hx Social History * Smoker: Denies Alcohol: Denies Recent Travel/Sick Contacts: Denies: Recent travel, Recent sick contacts Psychosocial History: No pertinent psych hx A-FIB/CHADSVASC A-FIB History Current/History of A-Fib/PAF?: Yes Current PO Anticoag Therapy: Yes Review of Systems Constitutional: Denies: Chills, Fever, Night Sweats Eyes: Denies: Pain, Vision change ENT: Denies: Head Aches, Ear Pain, Dysphagia Skin: Denies: Rash, Lesions, Breakdown Pulmonary: Denies: Dyspnea, Cough Cardiovascular: Denies: Chest Pain, Palpitations, Orthopnea, Paroxysmal Noc. Dyspnea, Lt Headedness Gastrointestinal: Reports: Diarrhea; Denies: Nausea, Vomiting, Abdominal Pain Genitourinary: Denies: Dysuria, Frequency, Incontinence, Retention Hematologic: Denies: Bruising, Bleeding Excessively Musculoskeletal: Denies: Neck Pain, Back Pain, Joint Pain, Muscle Pain, Spasms Neurological: Denies: Weakness, Numbness, Change in speech, Confusion Psych: Reports: Mood Normal; Denies: Depression, Memory Issues Physical Examination General Exam: Positive: Alert, No Acute Distress Eye Exam: Positive: PERRLA, Conjunctiva & lids normal, EOMI; Negative: Sclera icteric ENT Exam: Positive: Atraumatic, Mucous membr. moist/pink, Pharynx Normal Neck Exam: Positive: Supple; Negative: JVD, thyromegaly Chest Exam: Positive: Clear to auscultation, Normal air movement Heart Exam: Positive: Rate Normal, Regular Rhythm, Normal S1, Normal S2; Negative: Murmurs, Rubs Telemetry: Positive: No significant arrhythmia Abdomen Exam: Positive: Normal bowel sounds, Soft; Negative: Tenderness, Hepatospenomegaly Extremity Exam: Positive: Normal pulses; Negative: Clubbing, Cyanosis, Edema Skin Exam: Positive: Nl turgor and temperature; Negative: Breakdown, Lesion Neuro Exam: Positive: Normal Gait, Normal Speech, Cranial Nerves 3-12 NL, Reflexes 2+ Psych Exam: Positive: Mental status NL, Mood NL, Oriented x 3 Vital Signs Vital Signs Date Time Temp Pulse Resp B/P (MAP) Pulse Ox O2 Delivery O2 Flow Rate FiO2 01/13/21 23:40 152/70 (97) 01/13/21 23:30 75 01/13/21 16:14 96.9 20 98 Room Air Laboratory Data Labs 24H Laboratory Tests 2 01/13/21 17:49: Immature Granulocyte % (Auto) 0.7, Neutrophils (%) (Auto) 70.8H, Lymphocytes (%) (Auto) 16.2L, Monocytes (%) (Auto) 9.9H, Eosinophils (%) (Auto) 1.9, Basophils (%) (Auto) 0.5, Neutrophils # (Auto) 4.0, Lymphocytes # (Auto) 0.9L, Monocytes # (Auto) 0.6, Eosinophils # (Auto) 0.1, Basophils # (Auto) 0.0, Nucleated Red Blo od Cells % (auto) 0.0, Prothrombin Time 15.2H, Prothromb Time International Ratio 1.16, Activated Partial Thromboplast Time 42.3H, Lactic Acid Level 0.8, Total Bilirubin 0.4, Direct Bilirubin 0.2, Aspartate Amino Transf (AST/SGOT) 23, Alanine Aminotransferase (ALT/SGPT) 28, Alkaline Phosphatase 92, Total Protein 6.0L, Albumin 3.1L, Albumin/Globulin Ratio 1.1L, Lipase 121 01/13/21 19:25: POC Glucose (Misc Panel) 84, POC Sodium (Misc Panel) 131L, POC Potassium (Misc Panel) 4.3, POC Chloride (Misc Panel) 95L, POC Total CO2 (Misc Panel) 23.0, POC Blood Urea Nitrogen (Misc Panel 36H, POC Ionized Calcium (Misc Panel) 4.4L, POC Creatinine (Misc Panel) 2.1H, POC Hematocrit (Misc Panel) 26.0L 01/13/21 23:47: CBC/BMP Laboratory Tests 01/13/21 17:49 Assessment/Plan 1. GI bleed in patient with underlying DENIA: Hemoglobin 8.3, baseline from August. -Monitor patient for overt bleeding -Gentle hydration given n.p.o. -Type and screen. Patient agreeable to blood if she needs it. -H/H trend every 6 hours -Protonix 40 mg IV twice daily -A.m. lab work -consider further GI work-up inpatient versus outpatient pending GI recommendations in a.m. 2. pAF: As noted in history but patient denies. Monitor patient, telemetry. OAC on hold. 3. Diabetes: Patient takes Metformin at home this will be held given above. Plan for Accu-Cheks before meals at bedtime and sliding scale insulin. Hypoglycemia protocol. 4. Hypertension: Monitor patient and BP. Continue Home meds with exception of hctz and lisinopril given low Na. Consider as needed coverage if systolic blood pressure greater than 170. 5. Mild Hyponatremia: In setting of andres and hctz use. Hold home meds and hydrate. AM BMP. 6. CAD: Continue Asa once cleared by GI 7. CT finding, Gallstones/ sludge noted on CT: Without LFT elevation. lipase 121. Patient denies abdominal discomfort. Monitor pt, AM labs. 8. Obesity: Complicates care DVT: SCDs CODE STATUS: Full code Dispo planning: Home anticipate tomorrow pending GI recommendations Plan / VTE VTE Prophylaxis Ordered?: Yes SIMRAN LAURENT NP Jan 13, 2021 23:59
[2021-01-14] MEDS ORDERED: NITROGLYCERIN 0.4 MG SUBL TABLET SL PRN (03:45)
[2021-01-14] MEDS ORDERED: PILL CUTTER 1 EACH XX PRN (04:05)
[2021-01-14 04:44] LABS: BASO % 0.5 % (0.0-1.0); EOS # 0.2 10^3/uL (0.0-0.5); HEMATOCRIT 24.4 % (36.0-47.0); HEMOGLOBIN 7.9 g/dl (12.0-15.5); LYMPH % 15.6 % (24.0-44.0); MEAN CORPUSCULAR HEMOGLOBIN 29.3 pg (27.0-33.0); MEAN CORPUSCULAR HGB CONC 32.4 g/dl (32.0-36.5); MEAN CORPUSCULAR VOLUME 90.4 fl (80.0-96.0); MONO # 0.7 10^3/uL (0.0-0.8); MONO % 10.3 % (2.0-8.0); NEUTROPHILS # 4.5 10^3/uL (1.5-8.5); PLATELET COUNT, AUTOMATED 149 10^3/uL (150-450); WHITE BLOOD COUNT 6.4 10^3/uL (4.0-10.0)
[2021-01-14 05:04] LABS: CALCIUM LEVEL 8.6 MG/DL (8.8-10.2); CREATININE FOR GFR 1.75 MG/DL (0.55-1.30); GLOMERULAR FILTRATION RATE 30.1 (>39); POTASSIUM SERUM 4.2 MEQ/L (3.5-5.1)
[2021-01-14] MEDS: HumaLOG INSULIN (NovoLOG) PER UNIT SC SCH ×4 (05:58→23:44)
[2021-01-14] MEDS ORDERED: HumaLOG INSULIN (NovoLOG) PER UNIT SC SCH ×2 (07:30→21:00)
[2021-01-14 08:37] LABS: VITAMIN B12 LEVEL 834 PG/ML (247-911)
[2021-01-14 08:38] LABS: FOLATE > 24.0 NG/ML (>5.4)
[2021-01-14] MEDS: amLODIPine 5 MG TAB PO SCH (08:52)
[2021-01-14] MEDS: allopurinoL 100 MG TAB PO SCH (08:52)
[2021-01-14] MEDS: ROSUVASTATIN 10 MG TAB (CRESTOR) PO SCH (08:52)
[2021-01-14] MEDS: CARVedilol 12.5 MG TAB PO SCH ×2 (08:53→21:05)
[2021-01-14] MEDS: SPIRONOLACTONE 12.5MG PER 1/2 TABLET PO SCH (09:47)
[2021-01-14] MEDS: VANCOMYCIN ORAL SOL 250MG/5ML ORAL SYRINGE PO SCH ×4 (09:47→23:59)
--- NOTE | 2021-01-14 11:43 | IPNPDOC ---
Date Seen The patient was seen on 01/14/21. Progress Note SUBJECTIVE:3 diarrhea episodes positive cdiff on po vanco and isolation without fever chills shortness of breath chest pain pressure tightness near syncope oral lightheadedness OBJECTIVE PHYSICAL EXAMINATION: VITAL SIGNS: Please see below. GENERAL: Slight pallor anicteric HEENT: No JVD thyromegaly moist mucous membranes CARDIOVASCULAR: S1-S2 irregularly irregular not tachycardic RESPIRATORY: Clear to auscultation no wheezing or rales ABDOMINAL: Positive bowel sounds soft nontender nondistended EXTREMITIES: No cyanosis or clubbing LABORATORY DATA, IMAGING STUDIES, MICROBIOLOGY: Please see below. ASSESSMENT AND PLAN: 75-year-old with history of paroxysmal A. fib hypertension iron deficiency diabetes anxiety reflux presented with 7 days of bloody diarrhea found to have C. difficile positive on PCR. C. difficile colitis Day #1 p.o. Vanco 250 every 6 hourly Isolation precautions GI bleed Off anticoagulation for A. fib Transfuse 2 units RBCs Protonix and Carafate GI consult if needed if continued bleeding Acute blood loss anemia Transfuse 2 units RBCs Paroxysmal atrial fibrillation Rate controlled Off anticoagulation due to acute blood loss anemia from GI bleed Hypertension controlled Continue home meds Type 2 diabetes Consistent carbohydrate diet insulin sliding scale with coverage Iron deficiency Transfuse 2 units RBCs Gastroesophageal reflux On PPI DVT prophylaxis Compression stockings VS, I&O, 24H, Fishbone Vital Signs/I&O Vital Signs Date Time Temp Pulse Resp B/P (MAP) Pulse Ox O2 Delivery O2 Flow Rate FiO2 01/14/21 08:53 72 163/70 01/14/21 01:01 96.2 01/13/21 16:14 20 98 Room Air I&O- Last 24 Hours up to 6 AM 01/14/21 05:59 Output Total 600 ml Balance -600 ml Laboratory Data 24H LABS Laboratory Tests 2 01/13/21 17:49: Immature Granulocyte % (Auto) 0.7, Neutrophils (%) (Auto) 70.8H, Lymphocytes (%) (Auto) 16.2L, Monocytes (%) (Auto) 9.9H, Eosinophils (%) (Auto) 1.9, Basophils (%) (Auto) 0.5, Neutrophils # (Auto) 4.0, Lymphocytes # (Auto) 0.9L, Monocytes # (Auto) 0.6, Eosinophils # (Auto) 0.1, Basophils # (Auto) 0.0, Nucleated Red Blood Cells % (auto) 0.0, Prothrombin Time 15.2H, Prothromb Time International Ratio 1.16, Activated Partial Thromboplast Time 42.3H, Lactic Acid Level 0.8, Total Bilirubin 0.4, Direct Bilirubin 0.2, Aspartate Amino Transf (AST/SGOT) 23, Alanine Aminotransferase (ALT/SGPT) 28, Alkaline Phosphatase 92, Total Protein 6.0L, Albumin 3.1L, Albumin/Globulin Ratio 1.1L, Lipase 121 01/13/21 19:25: POC Glucose (Misc Panel) 84, POC Sodium (Misc Panel) 131L, POC Potassium (Misc Panel) 4.3, POC Chloride (Misc Panel) 95L, POC Total CO2 (Misc Panel) 23.0, POC Blood Urea Nitrogen (Misc Panel 36H, POC Ionized Calcium (Misc Panel) 4.4L, POC Creatinine (Misc Panel) 2.1H, POC Hematocrit (Misc Panel) 26.0L 01/13/21 23:47: Coronavirus (COVID-19)(PCR) NEGATIVE, Influenza Type A (RT-PCR) NEGATIVE, Influenza Type B (RT-PCR) NEGATIVE, Respiratory Syncytial Virus (PCR) NEGATIVE 01/13/21 23:57: Immature Granulocyte % (Auto) 1.2, Neutrophils (%) (Auto) 69.4H, Lymphocytes (%) (Auto) 16.5L, Monocytes (%) (Auto) 10.1H, Eosinophils (%) (Auto) 2.3, Basophils (%) (Auto) 0.5, Neutrophils # (Auto) 5.2, Lymphocytes # (Auto) 1.2L, Monocytes # (Auto) 0.8, Eosinophils # (Auto) 0.2, Basophils # (Auto) 0.0, Nucleated Red Blood Cells % (auto) 0.0, Iron Level 36L, Total Iron Binding Capacity 301, Tra nsferrin % Saturation 12.0L, Ferritin 70, Vitamin B12 Level 834, Folate > 24.0 01/14/21 04:26: Immature Granulocyte % (Auto) 0.6, Neutrophils (%) (Auto) 70.0H, Lymphocytes (%) (Auto) 15.6L, Monocytes (%) (Auto) 10.3H, Eosinophils (%) (Auto) 3.0, Basophils (%) (Auto) 0.5, Neutrophils # (Auto) 4.5, Lymphocytes # (Auto) 1.0L, Monocytes # (Auto) 0.7, Eosinophils # (Auto) 0.2, Basophils # (Auto) 0.0, Nucleated Red Blood Cells % (auto) 0.0, Anion Gap 7L, Glomerular Filtration Rate 30.1L, Calcium Level 8.6L CBC/BMP Laboratory Tests 01/13/21 17:49 01/13/21 23:57 01/14/21 04:26 Microbiology Microbiology 01/14/21 Stool Occult Blood (ANNALEE) - Final, Complete 01/14/21 Gastrointestinal Tract Panel (PCR) - Final, Complete Clostridium Difficile A/B MACIEJ FOX MD Jan 14, 2021 11:43
[2021-01-14 12:14] LABS: HEMOGLOBIN 7.7 g/dl (12.0-15.5)
[2021-01-14] MEDS: DOCUSATE SODIUM 100MG CAPSULE PO SCH (21:00)
[2021-01-14 22:31] LABS: HEMATOCRIT 30.7 % (36.0-47.0)
[2021-01-14 22:34] LABS: HEMOGLOBIN 10.1 g/dl (12.0-15.5)
[2021-01-14] MEDS: NS 1,000 ML IV SCH (23:59)
[2021-01-15 06:00] VITALS: BP 119/56
[2021-01-15] MEDS: HumaLOG INSULIN (NovoLOG) PER UNIT SC SCH ×3 (06:00→16:45)
[2021-01-15] MEDS: VANCOMYCIN ORAL SOL 250MG/5ML ORAL SYRINGE PO SCH ×4 (06:51→23:49)
[2021-01-15 06:58] LABS: HEMATOCRIT 27.9 % (36.0-47.0)
[2021-01-15] MEDS: allopurinoL 100 MG TAB PO SCH (08:38)
[2021-01-15] MEDS: amLODIPine 5 MG TAB PO SCH (08:38)
[2021-01-15] MEDS: ROSUVASTATIN 10 MG TAB (CRESTOR) PO SCH (08:39)
[2021-01-15] MEDS: PANTOPRAZOLE 40MG VIAL (C9113 PER 1) IV SCH ×2 (08:40→20:39)
[2021-01-15] MEDS: SPIRONOLACTONE 12.5MG PER 1/2 TABLET PO SCH (08:40)
[2021-01-15] MEDS: CARVedilol 12.5 MG TAB PO SCH ×2 (08:41→20:40)
[2021-01-15] MEDS: NS 1,000 ML IV SCH (08:41)
[2021-01-15 11:15] LABS: CALCIUM LEVEL 8.8 MG/DL (8.8-10.2); CREATININE FOR GFR 1.61 MG/DL (0.55-1.30); GLOMERULAR FILTRATION RATE 33.1 (>39); POTASSIUM SERUM 4.4 MEQ/L (3.5-5.1)
[2021-01-15] MEDS ORDERED: GLUCAGON INJ 1MG VIAL SC PRN (11:40)
[2021-01-15] MEDS ORDERED: GLUCOSE 4GM CHEW TABLET PO PRN (11:40)
[2021-01-15] MEDS ORDERED: DEXTROSE 50% 50 ML SYRINGE IV PRN (11:40)
[2021-01-15 11:45] LABS: HEMATOCRIT 30.1 % (36.0-47.0); HEMOGLOBIN 9.8 g/dl (12.0-15.5)
--- NOTE | 2021-01-15 12:37 | CR.PDOC ---
General Date of Consultation: Jan 15, [address] Sparks HISTORY OF PRESENT ILLNESS: The patient is a 75-year-old female who presented to the emergency department with history of bloody diarrhea. She had reported that she had been having this for the past 7 days. She is on iron for history of iron deficiency anemia and reported that she had had dark brownish red bowel movements. The patient was admitted with GI bleeding and general surgery was consulted. She also reports that she had been straining to have a bowel movement and felt a "pop" and then had bleeding. She states she had a soft formed bowel movement this morning and she states there was no blood, brown in color. ALLERGIES: Please see below. HOME MEDICATIONS: Please see below. PAST MEDICAL HISTORY: Paroxysmal atrial fibrillation, on Xarelto Hypertension Iron deficiency anemia Anxiety Diabetes GERD Hyperlipidemia CAD, cardiac stent PAST SURGICAL HISTORY: Hysterectomy SOCIAL HISTORY: Nonsmoker REVIEW OF SYSTEMS: As noted in HPI otherwise 10 point review of systems unremarkable. PHYSICAL EXAMINATION: VITAL SIGNS: Temperature 98.0, heart rate 75, respiratory rate 18, blood pressure 119/56, 95% room air GENERAL APPEARANCE: No acute distress, resting comfortably in bed HEENT: MMM RESPIRATORY: CTAB CARDIOVASCULAR: RRR ABDOMEN: Soft, nontender, nondistended. EXTREMITIES: No edema The patient received 2 units packed red blood cells. Hemoglobin at 5:42 AM 9.0, 11:[address] A/P IMPRESSION: 1. Layering faint stones or sludge in the gallbladder. 2. Right adrenal adenoma which is unchanged from 02/29/2016. 3. Old granulomatous disease of the spleen. 4. Mild colonic diverticulosis, greatest in the sigmoid without diverticulitis. 5. Status post hysterectomy. Electronically signed by: Antony López On 01/13/2021 23:06:02 PM ASSESSMENT/PLAN: 1. GIB Patient is reviewed and examined as per Dr. Sparks this morning. Status post 2 units packed red blood cells, hemoglobin stable this morning, 9.0/9.8. Patient reports she had a bowel movement this morning which was brown with no blood that she noted. The patient is also noted to have C. difficile and has been started on oral Vanco Dr. Sparks discussed with the patient bleeding could possibly be diverticular versus hemorrhoid. No plan for colonoscopy at this time as the patient is being treated for C. difficile colitis and also the patient reports she had bowel mo vement this morning with no bleeding. Continue to monitor. 2. PAF. AC on hold as per hospitalist Vital Signs/I&O Vital Signs Date Time Temp Pulse Resp B/P (MAP) Pulse Ox O2 Delivery O2 Flow Rate FiO2 01/15/21 08:41 72 122/64 01/15/21 06:00 98.0 18 95 Room Air I&O- Last 24 Hours up to 6 AM 01/15/21 06:00 Intake Total 2250 ml Output Total 0 ml Balance 2250 ml Laboratory Data Labs 24H Laboratory Tests 2 01/14/21 12:45: Methicillin-Resist S.aureus DNA PCR NOT DETECTED 01/14/21 17:01: Bedside Glucose (Misc Panel) 91 01/14/21 23:42: Bedside Glucose (Misc Panel) 95 01/15/21 06:34: Bedside Glucose (Misc Panel) 91 01/15/21 10:20: Anion Gap 7L, Glomerular Filtration Rate 33.1L, Calcium Level 8.8 01/15/21 11:50: Lab Scanned Report Miscellaneous Lab 01/15/21 11:51: Bedside Glucose (Misc Panel) 161H CBC/BMP Laboratory Tests 01/14/21 22:25 01/15/21 05:42 01/15/21 10:20 01/15/21 11:21 Microbiology Microbiology 01/14/21 Stool Occult Blood (ANNALEE) - Final, Complete 01/14/21 Gastrointestinal Tract Panel (PCR) - Final, Complete Clostridium Difficile A/B Allergies Coded Allergies: ibuprofen (Verified Allergy, Severe, tongue swelling, 12/13/18) Home Medications Scheduled Allopurinol (Allopurinol) 100 Mg Tablet, 100 MG PO DAILY, (Reported) Amlodipine Besylate (Amlodipine Besylate) 5 Mg Tablet, 5 MG PO DAILY, (Reported) Aspirin (Aspirin EC) 81 Mg Tablet.dr, 81 MG PO DAILY, (Reported) Carvedilol (Carvedilol) 25 Mg Tablet, 12.5 MG PO BID, (Reported) Docusate Sodium (Docusate Sodium) 100 Mg Capsule, 100 MG PO QHS, (Reported) Ergocalciferol (Vitamin D2) (Vitamin D2) 50,000 Units Cap, 50,000 UNITS PO QWEEK, (Reported) WEDNESDAY MORNINGS Ferrous Sulfate (Ferrous Sulfate) 325 Mg Tablet, 325 MG PO BID, (Reported) Glipizide (Glipizide ER) 5 Mg Tab.er.24, 5 MG PO DAILY, (Reported) Lisinopril (Lisinopril) 20 Mg Tablet, 20 MG PO BID, (Reported) Magnesium Oxide (Magnesium Oxide) 400 Mg Tablet, 400 MG PO TID, (Reported) Multivitamins (Thera M Plus Tablet) 1 Each Tablet, 1 TAB PO DAILY, (Reported) [place]-3 Fatty Acids/Fish Oil (Fish Oil 1,000 mg Capsule) 1 Each Capsule, 3,000 MG PO DAILY, (Reported) Omeprazole (Omeprazole) 40 Mg Capsule.dr, 40 MG PO BID, (Reported) Rivaroxaban (Xarelto) 15 Mg Tablet, 15 MG PO QHS, (Reported) Rosuvastatin Calcium (Rosuvastatin Calcium) 5 Mg Tablet, 5 MG PO DAILY, (Reported) Spironolact/Hydrochlorothiazid (Spironolactone-Hctz 25-25 Tab) 1 Each Tablet, 0.5 TAB PO 3XW, (Reported) WEDNESDAY/WEDNESDAY/WEDNESDAY Spironolact/Hydrochlorothiazid (Spironolactone-Hctz 25-25 Tab) 1 Each Tablet, 1 TAB PO 4XWK, (Reported) WEDNESDAY/WEDNESDAY/WEDNESDAY/WEDNESDAY Scheduled PRN Nitroglycerin (Nitrostat) 0.4 Mg Tab.subl, 0.4 MG SL NITRO PRN for CHEST PAIN, (Reported) Geneva Triplett Jan 15, 2021 12:37
--- NOTE | 2021-01-15 12:37 | IPNPDOC ---
Date Seen The patient was seen on 01/15/21. Progress Note SUBJECTIVE: Formed stool this morning no loose watery stools no fever chills nausea vomiting or abdominal pain Denies dizziness lightheadedness shortness of breath chest pain pressure tightness OBJECTIVE PHYSICAL EXAMINATION: VITAL SIGNS: Please see below. GENERAL: No distress awake alert oriented to person place and time HEENT: No JVD thyromegaly moist mucous membranes CARDIOVASCULAR: S1-S2 irregularly irregular not tachycardic no carotid bruit RESPIRATORY: Clear to auscultation no wheezing or rales air entry is equal bilaterally ABDOMINAL: Positive bowel sounds soft nontender nondistended obese abdomen no CVA tenderness EXTREMITIES: No cyanosis or clubbing. No pitting edema LABORATORY DATA, IMAGING STUDIES, MICROBIOLOGY: Please see below. ASSESSMENT AND PLAN: 75-year-old with history of paroxysmal A. fib hypertension iron deficiency diabetes anxiety reflux presented with 7 days of bloody diarrhea found to have C. difficile positive on PCR. C. difficile colitis Day #2 p.o. Vanco 250 every 6 hourly Isolation precautions Tolerating her diet nondistended abdomen GI bleed Off anticoagulation for A. fib Transfused 2 units RBCs with improved hemoglobin Protonix and Carafate No plans for endoscopy due to active C. difficile infection and risk of perforation with air insufflation during colonoscopy Acute blood loss anemia Transfused 2 units RBCs Paroxysmal atrial fibrillation Rate controlled Off anticoagulation due to acute blood loss anemia from GI bleed Hypertension controlled Continue home meds Type 2 diabetes Resumed on oral diet Discontinued IV fluids Iron deficiency Transfuse 2 units RBCs Gastroesophageal reflux On PPI DVT prophylaxis Compression stockings VS, I&O, 24H, Fishbone Vital Signs/I&O Vital Signs Date Time Temp Pulse Resp B/P (MAP) Pulse Ox O2 Delivery O2 Flow Rate FiO2 01/15/21 08:41 72 122/64 01/15/21 06:00 98.0 18 95 Room Air I&O- Last 24 Hours up to 6 AM 01/15/21 06:00 Intake Total 2250 ml Output Total 0 ml Balance 2250 ml Laboratory Data 24H LABS Laboratory Tests 2 01/14/21 12:45: Methicillin-Resist S.aureus DNA PCR NOT DETECTED 01/14/21 17:01: Bedside Glucose (Misc Panel) 91 01/14/21 23:42: Bedside Glucose (Misc Panel) 95 01/15/21 06:34: Bedside Glucose (Misc Panel) 91 01/15/21 10:20: Anion Gap 7L, Glomerular Filtration Rate 33.1L, Calcium Level 8.8 01/15/21 11:50: Lab Scanned Report Miscellaneous Lab 01/15/21 11:51: Bedside Glucose (Misc Panel) 161H CBC/BMP Laboratory Tests 01/14/21 22:25 01/15/21 05:42 01/15/21 10:20 01/15/21 11:21 Microbiology Microbiology 01/14/21 Stool Occult Blood (ANNALEE) - Final, Complete 01/14/21 Gastrointestinal Tract Panel (PCR) - Final, Complete Clostridium Difficile A/B MACIEJ FOX MD Jan 15, 2021 12:37
[2021-01-15 14:00] VITALS: BP 116/60
[2021-01-15 18:12] LABS: HEMATOCRIT 29.9 % (36.0-47.0); HEMOGLOBIN 9.8 g/dl (12.0-15.5)
[2021-01-15] MEDS ORDERED: CALCIUM CARBONATE 500 MG CHEW U/D PO PRN (20:25)
[2021-01-15] MEDS: DOCUSATE SODIUM 100MG CAPSULE PO SCH (20:40)
[2021-01-15] MEDS ORDERED: HumaLOG INSULIN (NovoLOG) PER UNIT SC SCH (21:00)
[2021-01-15 22:00] VITALS: BP 121/58
[2021-01-16] MEDS: VANCOMYCIN ORAL SOL 250MG/5ML ORAL SYRINGE PO SCH ×2 (05:24→11:55)
[2021-01-16 06:00] VITALS: BP 118/51
[2021-01-16] MEDS: HumaLOG INSULIN (NovoLOG) PER UNIT SC SCH (07:30)
[2021-01-16] MEDS ORDERED: PANTOPRAZOLE 40MG TAB (PROTONIX) PO SCH (09:00)
[2021-01-16] MEDS: PANTOPRAZOLE 40MG VIAL (C9113 PER 1) IV SCH ×2 (09:00→09:36)
[2021-01-16] MEDS ORDERED: VANC250C3 PO (09:02)
[2021-01-16 09:33] LABS: BASO % 0.6 % (0.0-1.0); EOS # 0.2 10^3/uL (0.0-0.5); HEMATOCRIT 29.6 % (36.0-47.0); HEMOGLOBIN 9.5 g/dl (12.0-15.5); LYMPH # 1.4 10^3/uL (1.5-5.0); LYMPH % 19.4 % (24.0-44.0); MEAN CORPUSCULAR HEMOGLOBIN 29.3 pg (27.0-33.0); MEAN CORPUSCULAR HGB CONC 32.1 g/dl (32.0-36.5); MEAN CORPUSCULAR VOLUME 91.4 fl (80.0-96.0); MONO # 0.5 10^3/uL (0.0-0.8); MONO % 7.6 % (2.0-8.0); NEUTROPHILS # 4.8 10^3/uL (1.5-8.5); NEUTROPHILS % 68.7 % (36.0-66.0); PLATELET COUNT, AUTOMATED 172 10^3/uL (150-450); RED BLOOD COUNT 3.24 10^6/uL (4.00-5.40)
[2021-01-16] MEDS: allopurinoL 100 MG TAB PO SCH (09:36)
[2021-01-16] MEDS: ROSUVASTATIN 10 MG TAB (CRESTOR) PO SCH (09:37)
[2021-01-16 09:38] VITALS: BP 132/56
[2021-01-16] MEDS: amLODIPine 5 MG TAB PO SCH (09:38)
[2021-01-16] MEDS: CARVedilol 12.5 MG TAB PO SCH (09:38)
[2021-01-16 10:00] LABS: CALCIUM LEVEL 8.9 MG/DL (8.8-10.2); CREATININE FOR GFR 1.67 MG/DL (0.55-1.30); GLOMERULAR FILTRATION RATE 31.8 (>39); POTASSIUM SERUM 4.4 MEQ/L (3.5-5.1)
--- NOTE | 2021-01-16 11:38 | DS.PDOC ---
Discharge Summary General Date of Admission Jan 13, 2021 at 23:42 Date of Discharge 01/16/21 Discharge Summary DISCHARGE DIAGNOSES: Acute blood loss anemia Acute lower GI bleed most likely diverticulosis in the setting of chronic anticoagulation Acute symptomatic anemia requiring 2 units RBC transfusion C. difficile colitis Chronic atrial fibrillation off anticoagulation due to acute GI bleed CAD/stent Hypertension Diabetes Obesity BMI 40.3 Iron deficiency anemia GERD DISCHARGE MEDICATIONS: SEE BELOW DISCHARGE INSTRUCTIONS: Primary care physician Dr. Bradley Sparks follow-up within 7 days of discharge Oral anticoagulant has been held due to active GI bleed Diuretics and FREDIS inhibitor have been held due to diarrhea from C. difficile colitis [employer] STATIONS: General surgeon-Dr. Bradley Sparks HOSPITAL COURSE: 75-year-old with history of paroxysmal A. fib hypertension iron deficiency diabetes anxiety reflux presented with 7 days of bloody diarrhea found to have C. difficile positive on PCR. C. difficile colitis on p.o. Vanco 250 every 6 hourly Patient is to complete a full 10 days of vancomycin as outpatient Isolation precautions Tolerating her diet nondistended abdomen GI bleed Off anticoagulation for A. fib Transfused 2 units RBCs with improved hemoglobin Protonix and Carafate No plans for endoscopy due to active C. difficile infection and risk of perforation with air insufflation during colonoscopy Acute blood loss anemia Transfused 2 units RBCs Paroxysmal atrial fibrillation Rate controlled Off anticoagulation due to acute blood loss anemia from GI bleed Hypertension controlled Continue home meds Type 2 diabetes Resumed on oral diet Discontinued IV fluids Iron deficiency Transfused 2 units RBCs Gastroesophageal reflux On PPI DVT prophylaxis Compression stockings DISCHARGE PHYSICAL EXAMINATION: VITAL SIGNS: Please see below. GENERAL: No distress awake alert oriented to person place and time HEENT: No JVD thyromegaly moist mucous membranes CARDIOVASCULAR: S1-S2 irregularly irregular not tachycardic no carotid bruit RESPIRATORY: Clear to auscultation no wheezing or rales air entry is equal bilaterally ABDOMINAL: Positive bowel sounds soft nontender nondistended obese abdomen no CVA tenderness EXTREMITIES: No cyanosis or clubbing. No pitting edema DISCHARGE LABORATORY DATA, IMAGING STUDIES, MICROBIOLOGY: Please see below. Time spent on discharge: 30 minutes Vital Signs/I&Os Vital Signs Date Time Temp Pulse Resp B/P (MAP) Pulse Ox O2 Delivery O2 Flow Rate FiO2 01/16/21 09:38 66 132/56 01/16/21 06:00 97.8 18 97 Room Air I&O- Last 24 Hours up to 6 AM 01/16/21 06:00 Intake Total 2050 ml Balance 2050 ml Laboratory Data Labs 24H Laboratory Tests 2 01/15/21 11:50: Lab Scanned Report Miscellaneous Lab 01/15/21 11:51: Bedside Glucose (Misc Panel) 161H 01/15/21 16:39: Bedside Glucose (Misc Panel) 114H 01/15/21 20:11: Bedside Glucose (Misc Panel) 98 01/16/21 05:28: Bedside Glucose (Misc Panel) 92 01/16/21 09:11: Immature Granulocyte % (Auto) 0.7, Neutrophils (%) (Auto) 68.7H, Lymphocytes (%) (Auto) 19.4L, Monocytes (%) (Auto) 7.6, Eosinophils (%) (Auto) 3.0, Basophils (%) (Auto) 0.6, Neutrophils # (Auto) 4.8, Lymphocytes # (Auto) 1.4L, Monocytes # (Auto) 0.5, Eosinophils # (Auto) 0.2, Basophils # (Auto) 0.0, Nucleated Red Blood Cells % (auto) 0.0, Anion Gap 7L, Glomerular Filtration Rate 31.8L, Calcium Level 8.9 CBC/BMP Laboratory Tests 01/15/21 11:21 01/15/21 17:51 01/16/21 09:11 FSBS Laboratory Tests Test 01/15/21 11:51 01/15/21 16:39 01/15/21 20:11 01/16/21 05:28 Range/Units Bedside Glucose (Misc Panel) 161 114 98 92 83-110 MG/DL Microbiology Microbiology 01/14/21 Stool Occult Blood (ANNALEE) - Final, Complete 01/14/21 Gastrointestinal Tract Panel (PCR) - Final, Complete Clostridium Difficile A/B Discharge Medications Scheduled Allopurinol (Allopurinol) 100 Mg Tablet, 100 MG PO DAILY, (Reported) Amlodipine Besylate (Amlodipine Besylate) 5 Mg Tablet, 5 MG PO DAILY, (Reported) Carvedilol (Carvedilol) 25 Mg Tablet, 12.5 MG PO BID, (Reported) Docusate Sodium (Docusate Sodium) 100 Mg Capsule, 100 MG PO QHS, (Reported) Ergocalciferol (Vitamin D2) (Vitamin D2) 50,000 Units Cap, 50,000 UNITS PO QWEEK, (Reported) WEDNESDAY MORNINGS Ferrous Sulfate (Ferrous Sulfate) 325 Mg Tablet, 325 MG PO BID, (Reported) Glipizide (Glipizide ER) 5 Mg Tab.er.24, 5 MG PO DAILY, (Reported) Magnesium Oxide (Magnesium Oxide) 400 Mg Tablet, 400 MG PO TID, (Reported) Multivitamins (Thera M Plus Tablet) 1 Each Tablet, 1 TAB PO DAILY, (Reported) [place]-3 Fatty Acids/Fish Oil (Fish Oil 1,000 mg Capsule) 1 Each Capsule, 3,000 MG PO DAILY, (Reported) Omeprazole (Omeprazole) 40 Mg Capsule.dr, 40 MG PO BID, (Reported) Rosuvastatin Calcium (Rosuvastatin Calcium) 5 Mg Tablet, 5 MG PO DAILY, (Reported) Spironolact/Hydrochlorothiazid (Spironolactone-Hctz 25-25 Tab) 1 Each Tablet, 0.5 TAB PO 3XW, (Reported) WEDNESDAY/WEDNESDAY/WEDNESDAY Vancomycin Hcl (Vancomycin HCl) 250 Mg Capsule, 250 MG PO QID Scheduled PRN Nitroglycerin (Nitrostat) 0.4 Mg Tab.subl, 0.4 MG SL NITRO PRN for CHEST PAIN, (Reported) Allergies Coded Allergies: ibuprofen (Verified Allergy, Severe, tongue swelling, 12/13/18) MACIEJ FOX MD Jan 16, 2021 11:17
== END 2021-01-16 12:00 | disposition home or self-care (01) | DRG 372 ==
LOC: M ED 16:13 → EEVIPCON 23:42 → M ED INP 23:42 → M MSPAV 01-14 02:28
PROVIDERS: ADMIT Internal Medicine; ATTEND General Practice
PROC: 30233N1 Transfusion of Nonautologous Red Blood Cells into Peripheral Vein, Percutaneous Approach (ICD-10-PCS; principal; 2021-01-14)
DX: A04.71 Enterocolitis due to Clostridium difficile, recurrent (principal); K92.2 Gastrointestinal hemorrhage, unspecified; E87.1 Hypo-osmolality and hyponatremia; Z68.41 Body mass index [BMI] 40.0-44.9, adult; D62 Acute posthemorrhagic anemia; D68.32 Hemorrhagic disorder due to extrinsic circulating anticoagulants; I48.0 Paroxysmal atrial fibrillation; I10 Essential (primary) hypertension; F41.9 Anxiety disorder, unspecified; E11.9 Type 2 diabetes mellitus without complications; K21.9 Gastro-esophageal reflux disease without esophagitis; Z79.82 Long term (current) use of aspirin; Z79.899 Other long term (current) drug therapy; Z79.84 Long term (current) use of oral hypoglycemic drugs; Z88.6 Allergy status to analgesic agent; Z95.5 Presence of coronary angioplasty implant and graft; I25.10 Atherosclerotic heart disease of native coronary artery without angina pectoris; K80.20 Calculus of gallbladder without cholecystitis without obstruction; E66.9 Obesity, unspecified; Z20.822 Contact with and (suspected) exposure to COVID-19; D50.9 Iron deficiency anemia, unspecified; E78.5 Hyperlipidemia, unspecified

== ENCOUNTER → 2021-01-22 | Outpatient (REF) | payer MEDICARE ==
[~2021-01-22] MED LIST changes: +ALLO100T PO; +ASPI-161 PO; +CARV25TA PO; +DOCU100C16 PO; +ERGO500029 PO; +FERR1TAB8 PO; +LISI20TA33 PO; +MAGN1TAB26 PO; +NITR4TASL SL; +OMEP-221 PO; +VANC250C3 PO; +VITMTA PO
[2021-01-22 16:12] LABS: BASO % 0.4 % (0.0-1.0); EOS # 0.3 10^3/uL (0.0-0.5); EOS % 3.4 % (0.0-3.0); HEMATOCRIT 30.4 % (36.0-47.0); HEMOGLOBIN 9.4 g/dl (12.0-15.5); LYMPH # 1.3 10^3/uL (1.5-5.0); LYMPH % 16.8 % (24.0-44.0); MEAN CORPUSCULAR HEMOGLOBIN 29.1 pg (27.0-33.0); MEAN CORPUSCULAR HGB CONC 30.9 g/dl (32.0-36.5); MEAN CORPUSCULAR VOLUME 94.1 fl (80.0-96.0); MONO # 0.6 10^3/uL (0.0-0.8); MONO % 7.3 % (2.0-8.0); NEUTROPHILS # 5.4 10^3/uL (1.5-8.5); NEUTROPHILS % 71.4 % (36.0-66.0); PLATELET COUNT, AUTOMATED 184 10^3/uL (150-450); RED BLOOD COUNT 3.23 10^6/uL (4.00-5.40); WHITE BLOOD COUNT 7.5 10^3/uL (4.0-10.0)
[2021-01-22 16:14] LABS: ALBUMIN 2.8 GM/DL (3.2-5.2); BILIRUBIN,TOTAL 0.3 MG/DL (0.2-1.0); CALCIUM LEVEL 8.7 MG/DL (8.8-10.2); CREATININE FOR GFR 1.55 MG/DL (0.55-1.30); GLOMERULAR FILTRATION RATE 34.6 (>39); PERCENT SATURATION 22.4 % (13.2-45.0); POTASSIUM SERUM 4.4 MEQ/L (3.5-5.1); TOTAL PROTEIN 5.7 GM/DL (6.4-8.2)
== END ==
LOC: M SFHCCAPE 08:12
PROVIDERS: ATTEND Physician Assistant
DX: D64.9 Anemia, unspecified (principal); R74.8 Abnormal levels of other serum enzymes; K92.2 Gastrointestinal hemorrhage, unspecified; E87.5 Hyperkalemia

== ENCOUNTER → 2021-10-14 | Outpatient (REF) | payer MEDICARE ==
[~2021-10-14] MED LIST changes: -OMEP-221 PO; +OMEP40CA5 PO
[2021-10-14 16:03] LABS: BASO # 0.1 10^3/uL (0.0-0.2); BASO % 0.7 % (0.0-1.0); EOS # 0.2 10^3/uL (0.0-0.5); EOS % 2.8 % (0.0-3.0); HEMATOCRIT 38.8 % (36.0-47.0); HEMOGLOBIN 12.3 g/dl (12.0-15.5); LYMPH # 1.8 10^3/uL (1.5-5.0); LYMPH % 23.7 % (24.0-44.0); MEAN CORPUSCULAR HEMOGLOBIN 29.6 pg (27.0-33.0); MEAN CORPUSCULAR HGB CONC 31.7 g/dl (32.0-36.5); MEAN CORPUSCULAR VOLUME 93.5 fl (80.0-96.0); MONO # 0.7 10^3/uL (0.0-0.8); MONO % 9.3 % (2.0-8.0); NEUTROPHILS # 4.8 10^3/uL (1.5-8.5); PLATELET COUNT, AUTOMATED 152 10^3/uL (150-450); RED BLOOD COUNT 4.15 10^6/uL (4.00-5.40); WHITE BLOOD COUNT 7.6 10^3/uL (4.0-10.0)
[2021-10-14 16:21] LABS: CREATININE, URINE 31.5 MG/DL; MALB URINE SIEMENS 20.1 MG/L; MAU/CREAT RATIO 63.8 MCG/MG (0.0-30.0)
[2021-10-14 16:29] LABS: HEMOGLOBIN A1c 6.5 %
[2021-10-14 17:09] LABS: ALBUMIN 3.3 GM/DL (3.2-5.2); BILIRUBIN,TOTAL 0.4 MG/DL (0.2-1.0); CALCIUM LEVEL 9.1 MG/DL (8.8-10.2); CHOLESTEROL RISK RATIO 3.952 (<5); CREATININE FOR GFR 1.7 MG/DL (0.55-1.30); MAGNESIUM LEVEL 2.3 MG/DL (1.8-2.4); POTASSIUM SERUM 5.2 MEQ/L (3.5-5.1); TOTAL 25(OH) VITAMIN D 96.8 NG/ML (30.0-100.0); TOTAL PROTEIN 6.4 GM/DL (6.4-8.2)
== END ==
LOC: M SFHCCAPE 08:39
PROVIDERS: ATTEND Physician Assistant
DX: I12.9 Hypertensive chronic kidney disease with stage 1 through stage 4 chronic kidney disease, or unspecified chronic kidney disease (principal); E11.8 Type 2 diabetes mellitus with unspecified complications; N18.32 Chronic kidney disease, stage 3b

== ENCOUNTER → 2023-06-07 | Outpatient (REF) | payer MEDICARE ==
[~2023-06-07] MED LIST changes: -POTA10CA32 PO; +POTA10CA60 PO
[2023-06-07 18:03] LABS: BASO % 0.2 % (0.0-1.0); EOS # 0.2 10^3/uL (0.0-0.5); EOS % 1.7 % (0.0-3.0); HEMATOCRIT 39.8 % (36.0-47.0); HEMOGLOBIN 12.9 g/dl (12.0-15.5); LYMPH # 1.5 10^3/uL (1.5-5.0); LYMPH % 16.2 % (24.0-44.0); MEAN CORPUSCULAR HEMOGLOBIN 29.9 pg (27.0-33.0); MEAN CORPUSCULAR HGB CONC 32.4 g/dl (32.0-36.5); MEAN CORPUSCULAR VOLUME 92.1 fl (80.0-96.0); MONO # 0.9 10^3/uL (0.0-0.8); MONO % 10.5 % (2.0-8.0); NEUTROPHILS # 6.3 10^3/uL (1.5-8.5); NEUTROPHILS % 70.5 % (36.0-66.0); PLATELET COUNT, AUTOMATED 268 10^3/uL (150-450); RED BLOOD COUNT 4.32 10^6/uL (4.00-5.40)
[2023-06-07 18:35] LABS: FREE T4 1.48 NG/DL (0.89-1.76)
[2023-06-07 18:36] LABS: ALBUMIN 3.1 G/DL (3.2-5.2); ALKALINE PHOSPHATASE 132 U/L (46-116); ALT/SGPT 27 U/L (7.0-40); AST/SGOT 16 U/L (<34); BILIRUBIN,TOTAL 0.3 MG/DL (0.3-1.2); BLOOD UREA NITROGEN 67 MG/DL (9-23); CALCIUM LEVEL 9.4 MG/DL (8.3-10.6); CARBON DIOXIDE LEVEL 22 MMOL/L (20-31); CHLORIDE LEVEL 108 MMOL/L (98-107); CHOLESTEROL LEVEL 140 MG/DL (<200); CHOLESTEROL RISK RATIO 4.38 (<5); CREATININE FOR GFR 1.78 MG/DL (0.55-1.30); GLOMERULAR FILTRATION RATE 29.3 (>39); GLUCOSE, FASTING 143 MG/DL (74-106); HDL CHOLESTEROL 31.9 MG/DL (>40); LDL CHOLESTEROL 56.9 MG/DL (<100); NON-HDL-C 108.1 MG/DL; POTASSIUM SERUM 4.8 MMOL/L (3.5-5.1); SODIUM LEVEL 137 MMOL/L (136-145); THYROID STIMULATING HORMONE 0.633 uIU/ML (0.55-4.78); TOTAL PROTEIN 6.1 G/DL (5.7-8.2); TRIGLYCERIDES LEVEL 256 MG/DL (<150)
[2023-06-07 18:37] LABS: VITAMIN B12 LEVEL 1976 PG/ML (211-911)
[2023-06-07 18:52] LABS: HEMOGLOBIN A1c 6.4 % (4.0-6.0)
[2023-06-07 19:00] LABS: FOLATE > 24.0 NG/ML (>5.4)
== END ==
LOC: M SFHCCAPE 11:24
PROVIDERS: ATTEND Physician Assistant Medical
DX: R41.3 Other amnesia (principal); I25.10 Atherosclerotic heart disease of native coronary artery without angina pectoris; E11.8 Type 2 diabetes mellitus with unspecified complications; R05.1 Acute cough; Z11.3 Encounter for screening for infections with a predominantly sexual mode of transmission; Z72.89 Other problems related to lifestyle

== ENCOUNTER 2023-07-31 09:57 | Inpatient (IN) | payer MEDICARE ==
[~2023-07-31] VITALS: Ht 152.4 cm; Wt 105.1 kg
[~2023-07-31 09:57] MED LIST changes: -ASPI-161 PO; +ASPI-615 PO
[2023-07-31] MEDS ORDERED: XARE15TA PO (10:34)
[2023-07-31] MEDS ORDERED: LISI5TAB11 PO (10:34)
[2023-07-31] MEDS ORDERED: GLIP5TAB17 PO (10:34)
[2023-07-31] MEDS: CARVedilol 12.5 MG TAB PO ONE (11:22)
[2023-07-31] MEDS: RIVAROXABAN 15MG TAB (XARELTO) PO ONE (11:22)
[2023-07-31 11:30] LABS: BASO # 0.1 10^3/uL (0.0-0.2); BASO % 0.7 % (0.0-1.0); EOS # 0.1 10^3/uL (0.0-0.5); EOS % 1.4 % (0.0-3.0); HEMOGLOBIN 12.5 g/dl (12.0-15.5); LYMPH # 1.2 10^3/uL (1.5-5.0); LYMPH % 12.7 % (24.0-44.0); MEAN CORPUSCULAR HEMOGLOBIN 30.1 pg (27.0-33.0); MEAN CORPUSCULAR HGB CONC 32.1 g/dl (32.0-36.5); MONO # 0.6 10^3/uL (0.0-0.8); MONO % 7.1 % (2.0-8.0); NEUTROPHILS % 77.5 % (36.0-66.0); PLATELET COUNT, AUTOMATED 168 10^3/uL (150-450); RED BLOOD COUNT 4.15 10^6/uL (4.00-5.40); WHITE BLOOD COUNT 9.1 10^3/uL (4.0-10.0)
[2023-07-31] MEDS: METOPROLOL 5 MG/5 ML VIAL IV SCH (11:41)
[2023-07-31 11:57] LABS: ALBUMIN 3.1 G/DL (3.2-5.2); BILIRUBIN,DIRECT 0.2 MG/DL (<0.4); BILIRUBIN,TOTAL 0.5 MG/DL (0.3-1.2); CALCIUM LEVEL 8.9 MG/DL (8.3-10.6); CREATININE FOR GFR 1.74 MG/DL (0.55-1.30); GLOMERULAR FILTRATION RATE 30.1 (>39); POTASSIUM SERUM 5.6 MMOL/L (3.5-5.1)
[2023-07-31 11:59] LABS: THYROID STIMULATING HORMONE 1.719 uIU/ML (0.55-4.78)
[2023-07-31] MEDS: FUROSEMIDE 40MG/4ML VIAL IV ONE (13:23)
[2023-07-31] MEDS ORDERED: DEXTROSE 50% 50ML SYRINGE IV PRN (14:20)
[2023-07-31] MEDS ORDERED: GLUCOSE 4GM CHEW TABLET PO PRN (14:20)
[2023-07-31] MEDS ORDERED: GLUCAGON INJ 1MG VIAL SC PRN (14:20)
[2023-07-31] MEDS ORDERED: MED REC IN PROGRESS XX SCH (14:45)
[2023-07-31 15:06] LABS: CK-MB VALUE MASS 1.1 NG/ML (<3.6)
[2023-07-31 15:08] LABS: MB/CK RELATIVE INDEX 2.44 (< OR =4)
[2023-07-31] MEDS: PATIROMER SORBITEX CALCIUM 8.4 GM POWDER PACKET (VELTASSA) PO ONE (15:38)
[2023-07-31 15:44] LABS: CREATININE FOR GFR 1.73 MG/DL (0.55-1.30); GLOMERULAR FILTRATION RATE 30.3 (>39); POTASSIUM SERUM 5.2 MMOL/L (3.5-5.1)
[2023-07-31] MEDS ORDERED: THERTAB52 PO (15:51)
[2023-07-31] MEDS ORDERED: OMEGCAP4 PO (15:51)
[2023-07-31] MEDS ORDERED: HOME MED LIST COMPLETE! XX SCH (15:55)
[2023-07-31 16:53] VITALS: BP 146/84; TEMP 97.9; O2SAT 96
[2023-07-31] MEDS: CALCIUM GLUCONATE 1,000 MG in D5W MINI-BAG PLUS 100 ML IV ONE (17:20)
[2023-07-31] MEDS: INSULIN LISPRO (NovoLOG) PER UNIT SC SCH ×2 (17:20→20:55)
[2023-07-31] MEDS ORDERED: PATIROMER SORBITEX CALCIUM 8.4 GM POWDER PACKET (VELTASSA) PO ONE (18:35)
[2023-07-31] MEDS ORDERED: CALCIUM GLUCONATE 1,000 MG in D5W MINI-BAG PLUS 100 ML IV SCH (18:35)
[2023-07-31 19:22] VITALS: BP 142/84; TEMP 97.4; O2SAT 93
[2023-07-31] MEDS: ROSUVASTATIN 10 MG TAB (CRESTOR) PO SCH (20:54)
[2023-07-31] MEDS: OMEPRAZOLE 20MG CAP PO SCH (20:54)
[2023-07-31] MEDS: CARVedilol 12.5 MG TAB PO SCH (20:54)
[2023-07-31] MEDS: FERROUS SULFATE 325MG TAB PO SCH (20:54)
[2023-07-31] MEDS ORDERED: APIXABAN 5 MG TAB (ELIQUIS) PO SCH (21:00)
[2023-07-31 23:30] VITALS: BP 122/61; TEMP 97.3; O2SAT 94
[2023-08-01 03:51] VITALS: BP 139/63; TEMP 97.8; O2SAT 93
[2023-08-01 04:56] LABS: BASO # 0.1 10^3/uL (0.0-0.2); BASO % 0.7 % (0.0-1.0); EOS # 0.2 10^3/uL (0.0-0.5); EOS % 2.2 % (0.0-3.0); HEMATOCRIT 37.9 % (36.0-47.0); HEMOGLOBIN 12.2 g/dl (12.0-15.5); LYMPH # 1.4 10^3/uL (1.5-5.0); MEAN CORPUSCULAR HGB CONC 32.2 g/dl (32.0-36.5); MEAN CORPUSCULAR VOLUME 93.1 fl (80.0-96.0); MONO # 0.7 10^3/uL (0.0-0.8); MONO % 8.1 % (2.0-8.0); NEUTROPHILS # 6.3 10^3/uL (1.5-8.5); NEUTROPHILS % 72.3 % (36.0-66.0); PLATELET COUNT, AUTOMATED 161 10^3/uL (150-450); RED BLOOD COUNT 4.07 10^6/uL (4.00-5.40); WHITE BLOOD COUNT 8.7 10^3/uL (4.0-10.0)
[2023-08-01 05:28] LABS: CALCIUM LEVEL 9.5 MG/DL (8.3-10.6); CHOLESTEROL RISK RATIO 4.23 (<5); CREATININE FOR GFR 1.77 MG/DL (0.55-1.30); GLOMERULAR FILTRATION RATE 29.5 (>39); LDL CHOLESTEROL 50.2 MG/DL (<100)
[2023-08-01 08:00] VITALS: BP 129/67; TEMP 97.9; O2SAT 92
[2023-08-01] MEDS: OMEGA-3 1000MG CAPSULE PO SCH (08:28)
[2023-08-01] MEDS: MULTIVITAMINS/MINERALS THERAP 1 TAB PO SCH (08:29)
[2023-08-01] MEDS: allopurinoL 100 MG TAB PO SCH (08:29)
[2023-08-01] MEDS ORDERED: OMEGA-3 1000MG CAPSULE PO SCH (09:00)
[2023-08-01] MEDS: FUROSEMIDE 40MG/4ML VIAL IV SCH (11:29)
[2023-08-01 12:00] VITALS: BP 132/60; TEMP 96.9; O2SAT 94
[2023-08-01] MEDS: RIVAROXABAN 15MG TAB (XARELTO) PO SCH (18:25)
[2023-08-01 19:25] VITALS: BP 129/71; TEMP 97.4; O2SAT 95
[2023-08-02 03:09] VITALS: BP 140/82; TEMP 97.6; O2SAT 95
[2023-08-02 05:15] LABS: BASO # 0.1 10^3/uL (0.0-0.2); BASO % 0.6 % (0.0-1.0); EOS # 0.2 10^3/uL (0.0-0.5); EOS % 1.9 % (0.0-3.0); HEMATOCRIT 38.8 % (36.0-47.0); HEMOGLOBIN 12.4 g/dl (12.0-15.5); LYMPH # 1.4 10^3/uL (1.5-5.0); LYMPH % 18.5 % (24.0-44.0); MEAN CORPUSCULAR HEMOGLOBIN 29.7 pg (27.0-33.0); MONO # 0.7 10^3/uL (0.0-0.8); MONO % 9.3 % (2.0-8.0); NEUTROPHILS # 5.4 10^3/uL (1.5-8.5); NEUTROPHILS % 69.3 % (36.0-66.0); PLATELET COUNT, AUTOMATED 155 10^3/uL (150-450); RED BLOOD COUNT 4.17 10^6/uL (4.00-5.40); WHITE BLOOD COUNT 7.8 10^3/uL (4.0-10.0)
[2023-08-02 05:40] LABS: CALCIUM LEVEL 9.3 MG/DL (8.3-10.6); CREATININE FOR GFR 2.12 MG/DL (0.55-1.30); POTASSIUM SERUM 4.5 MMOL/L (3.5-5.1)
[2023-08-02 08:03] VITALS: BP 124/67; TEMP 97.3; O2SAT 92
[2023-08-02 16:19] VITALS: BP 104/60; TEMP 97.4; O2SAT 92
[2023-08-02 19:19] VITALS: BP 109/62; TEMP 98; O2SAT 93
[2023-08-02 23:22] VITALS: BP 124/77; TEMP 97.8; O2SAT 96
[2023-08-03 03:08] VITALS: BP 123/64; TEMP 98.2; O2SAT 93
[2023-08-03 05:36] LABS: BASO % 0.5 % (0.0-1.0); EOS # 0.2 10^3/uL (0.0-0.5); EOS % 2.2 % (0.0-3.0); HEMATOCRIT 39.6 % (36.0-47.0); HEMOGLOBIN 12.5 g/dl (12.0-15.5); LYMPH # 1.5 10^3/uL (1.5-5.0); LYMPH % 19.1 % (24.0-44.0); MEAN CORPUSCULAR HEMOGLOBIN 29.8 pg (27.0-33.0); MEAN CORPUSCULAR HGB CONC 31.6 g/dl (32.0-36.5); MEAN CORPUSCULAR VOLUME 94.3 fl (80.0-96.0); MONO # 0.8 10^3/uL (0.0-0.8); MONO % 9.3 % (2.0-8.0); NEUTROPHILS # 5.5 10^3/uL (1.5-8.5); NEUTROPHILS % 68.5 % (36.0-66.0); PLATELET COUNT, AUTOMATED 171 10^3/uL (150-450)
[2023-08-03 06:02] LABS: CALCIUM LEVEL 8.8 MG/DL (8.3-10.6); CREATININE FOR GFR 2.3 MG/DL (0.55-1.30); GLOMERULAR FILTRATION RATE 21.8 (>39); POTASSIUM SERUM 4.3 MMOL/L (3.5-5.1)
[2023-08-03 07:58] VITALS: BP 130/73; TEMP 96.8; O2SAT 93
[2023-08-03 11:45] VITALS: BP 123/69; TEMP 97; O2SAT 93
[2023-08-03] MEDS: metOLazone 2.5 MG TAB PO ONE (12:55)
[2023-08-03 16:27] VITALS: BP 116/66; TEMP 97.2; O2SAT 94
[2023-08-03] MEDS: FUROSEMIDE 100MG/10ML VIAL IV SCH (18:12)
[2023-08-03 19:17] VITALS: BP 118/69; TEMP 97.5; O2SAT 93
[2023-08-03 23:03] VITALS: BP 122/72; TEMP 97.2; O2SAT 94
[2023-08-04 03:14] VITALS: BP 125/65; TEMP 97.5; O2SAT 93
[2023-08-04 05:34] LABS: BASO % 0.4 % (0.0-1.0); EOS # 0.2 10^3/uL (0.0-0.5); EOS % 2.1 % (0.0-3.0); HEMATOCRIT 40.9 % (36.0-47.0); HEMOGLOBIN 13.1 g/dl (12.0-15.5); LYMPH # 1.8 10^3/uL (1.5-5.0); LYMPH % 19.9 % (24.0-44.0); MEAN CORPUSCULAR HEMOGLOBIN 29.5 pg (27.0-33.0); MEAN CORPUSCULAR VOLUME 92.1 fl (80.0-96.0); MONO # 0.7 10^3/uL (0.0-0.8); MONO % 8.2 % (2.0-8.0); NEUTROPHILS # 6.1 10^3/uL (1.5-8.5); NEUTROPHILS % 68.8 % (36.0-66.0); PLATELET COUNT, AUTOMATED 182 10^3/uL (150-450); RED BLOOD COUNT 4.44 10^6/uL (4.00-5.40); WHITE BLOOD COUNT 8.9 10^3/uL (4.0-10.0)
[2023-08-04 06:02] LABS: CALCIUM LEVEL 9.1 MG/DL (8.3-10.6); CREATININE FOR GFR 2.51 MG/DL (0.55-1.30); GLOMERULAR FILTRATION RATE 19.7 (>39); POTASSIUM SERUM 3.9 MMOL/L (3.5-5.1)
[2023-08-04 08:00] VITALS: BP 126/62; TEMP 97.4; O2SAT 96
[2023-08-04] MEDS: LEVEMIR (INSULIN DETEMIR) 1 UNITS/0.01ML SC SCH (09:15)
[2023-08-04 16:00] VITALS: BP 127/70; TEMP 97.8; O2SAT 98
[2023-08-04 19:37] VITALS: BP 110/61; TEMP 97.9; O2SAT 96
[2023-08-04 21:12] VITALS: BP 112/64
[2023-08-05 03:42] VITALS: BP 128/65; TEMP 97.8; O2SAT 94
[2023-08-05 05:24] LABS: BASO # 0.1 10^3/uL (0.0-0.2); BASO % 0.7 % (0.0-1.0); EOS # 0.2 10^3/uL (0.0-0.5); EOS % 1.9 % (0.0-3.0); HEMATOCRIT 42.1 % (36.0-47.0); HEMOGLOBIN 13.5 g/dl (12.0-15.5); LYMPH # 1.6 10^3/uL (1.5-5.0); MEAN CORPUSCULAR HEMOGLOBIN 29.5 pg (27.0-33.0); MEAN CORPUSCULAR HGB CONC 32.1 g/dl (32.0-36.5); MEAN CORPUSCULAR VOLUME 91.9 fl (80.0-96.0); MONO # 0.8 10^3/uL (0.0-0.8); MONO % 8.8 % (2.0-8.0); NEUTROPHILS # 6.3 10^3/uL (1.5-8.5); NEUTROPHILS % 70.3 % (36.0-66.0); PLATELET COUNT, AUTOMATED 173 10^3/uL (150-450); RED BLOOD COUNT 4.58 10^6/uL (4.00-5.40); WHITE BLOOD COUNT 8.9 10^3/uL (4.0-10.0)
[2023-08-05 05:55] LABS: CALCIUM LEVEL 9.1 MG/DL (8.3-10.6); CREATININE FOR GFR 2.95 MG/DL (0.55-1.30); GLOMERULAR FILTRATION RATE 16.4 (>39); POTASSIUM SERUM 3.7 MMOL/L (3.5-5.1)
[2023-08-05 08:00] VITALS: BP 128/61; TEMP 98; O2SAT 99
[2023-08-05] MEDS ORDERED: diphenhydrAMINE 50MG CAP PO PRN (11:40)
[2023-08-05 16:16] VITALS: BP 140/60; TEMP 97.4; O2SAT 94
[2023-08-05 21:08] VITALS: BP 124/69; TEMP 97.5; O2SAT 94
[2023-08-05] MEDS: LEVEMIR (INSULIN DETEMIR) 1 UNITS/0.01ML SC SCH (21:33)
[2023-08-06 05:19] VITALS: BP 122/95; TEMP 97.7; O2SAT 94
[2023-08-06 07:18] LABS: BASO % 0.5 % (0.0-1.0); EOS # 0.2 10^3/uL (0.0-0.5); EOS % 2.2 % (0.0-3.0); HEMATOCRIT 38.7 % (36.0-47.0); HEMOGLOBIN 12.7 g/dl (12.0-15.5); LYMPH # 1.5 10^3/uL (1.5-5.0); LYMPH % 17.4 % (24.0-44.0); MEAN CORPUSCULAR HEMOGLOBIN 30.4 pg (27.0-33.0); MEAN CORPUSCULAR HGB CONC 32.8 g/dl (32.0-36.5); MEAN CORPUSCULAR VOLUME 92.6 fl (80.0-96.0); MONO # 0.7 10^3/uL (0.0-0.8); MONO % 8.3 % (2.0-8.0); NEUTROPHILS # 6.1 10^3/uL (1.5-8.5); PLATELET COUNT, AUTOMATED 160 10^3/uL (150-450); RED BLOOD COUNT 4.18 10^6/uL (4.00-5.40); WHITE BLOOD COUNT 8.5 10^3/uL (4.0-10.0)
[2023-08-06 07:48] LABS: CALCIUM LEVEL 9.1 MG/DL (8.3-10.6); CREATININE FOR GFR 2.85 MG/DL (0.55-1.30); POTASSIUM SERUM 3.7 MMOL/L (3.5-5.1)
[2023-08-06] MEDS: INSULIN LISPRO (NovoLOG) PER UNIT SC SCH (12:00)
[2023-08-06] MEDS: POTASSIUM CHLORIDE 10MEQ SR TABLET PO ONE (12:06)
[2023-08-06 20:00] VITALS: BP 128/66; TEMP 97.5; O2SAT 93
[2023-08-07 06:01] LABS: BASO % 0.5 % (0.0-1.0); EOS # 0.2 10^3/uL (0.0-0.5); EOS % 1.9 % (0.0-3.0); HEMATOCRIT 38.9 % (36.0-47.0); HEMOGLOBIN 12.6 g/dl (12.0-15.5); LYMPH # 1.3 10^3/uL (1.5-5.0); LYMPH % 16.1 % (24.0-44.0); MEAN CORPUSCULAR HEMOGLOBIN 29.7 pg (27.0-33.0); MEAN CORPUSCULAR HGB CONC 32.4 g/dl (32.0-36.5); MEAN CORPUSCULAR VOLUME 91.7 fl (80.0-96.0); MONO # 0.7 10^3/uL (0.0-0.8); MONO % 8.5 % (2.0-8.0); NEUTROPHILS % 72.6 % (36.0-66.0); PLATELET COUNT, AUTOMATED 158 10^3/uL (150-450); RED BLOOD COUNT 4.24 10^6/uL (4.00-5.40); WHITE BLOOD COUNT 8.3 10^3/uL (4.0-10.0)
[2023-08-07 06:24] LABS: CALCIUM LEVEL 8.2 MG/DL (8.3-10.6); CREATININE FOR GFR 2.54 MG/DL (0.55-1.30); GLOMERULAR FILTRATION RATE 19.5 (>39); POTASSIUM SERUM 3.9 MMOL/L (3.5-5.1)
[2023-08-07 08:08] VITALS: BP 139/70
[2023-08-07] MEDS: POTASSIUM CHLORIDE 10MEQ SR TABLET PO SCH (10:07)
[2023-08-07] MEDS: FUROSEMIDE 40 MG TAB PO SCH (10:07)
[2023-08-07] MEDS ORDERED: FURO40TA2 PO (11:11)
[2023-08-07] MEDS ORDERED: POTA10CA60 PO (11:12)
== END 2023-08-07 12:30 | disposition home or self-care (01) | DRG 291 ==
LOC: M ED 09:57 → EDBD 09:57 → M ED INP 14:15 → ENRESERV 14:22 → M PCU 16:30 → M MSPAV 08-05 19:01
PROVIDERS: ADMIT General Practice; ATTEND General Practice
PROC: B246ZZZ Ultrasonography of Right and Left Heart (ICD-10-PCS; principal; 2023-08-03)
DX: I13.0 Hypertensive heart and chronic kidney disease with heart failure and stage 1 through stage 4 chronic kidney disease, or unspecified chronic kidney disease (principal); I50.21 Acute systolic (congestive) heart failure; J96.01 Acute respiratory failure with hypoxia; I48.20 Chronic atrial fibrillation, unspecified; Z68.42 Body mass index [BMI] 45.0-49.9, adult; N17.9 Acute kidney failure, unspecified; E87.1 Hypo-osmolality and hyponatremia; E78.5 Hyperlipidemia, unspecified; Z66 Do not resuscitate; E87.5 Hyperkalemia; N18.30 Chronic kidney disease, stage 3 unspecified; J44.9 Chronic obstructive pulmonary disease, unspecified; I73.9 Peripheral vascular disease, unspecified; E11.51 Type 2 diabetes mellitus with diabetic peripheral angiopathy without gangrene; E11.22 Type 2 diabetes mellitus with diabetic chronic kidney disease; E66.9 Obesity, unspecified; I25.10 Atherosclerotic heart disease of native coronary artery without angina pectoris; I87.309 Chronic venous hypertension (idiopathic) without complications of unspecified lower extremity; D50.9 Iron deficiency anemia, unspecified; K21.9 Gastro-esophageal reflux disease without esophagitis; M17.0 Bilateral primary osteoarthritis of knee; Z90.79 Acquired absence of other genital organ(s); Z79.84 Long term (current) use of oral hypoglycemic drugs; Z79.899 Other long term (current) drug therapy; Z88.6 Allergy status to analgesic agent; Z11.52 Encounter for screening for COVID-19; Z87.891 Personal history of nicotine dependence; Z95.5 Presence of coronary angioplasty implant and graft

== ENCOUNTER → 2023-08-16 | Outpatient (REF) | payer MEDICARE ==
[~2023-08-16] MED LIST changes: +FURO40TA2 PO; +GLIP5TAB17 PO; +LISI5TAB11 PO; +OMEGCAP4 PO; +THERTAB52 PO
[2023-08-16 18:14] LABS: CREATININE, URINE 24.9 MG/DL
[2023-08-16 18:19] LABS: BILIRUBIN,TOTAL 0.4 MG/DL (0.3-1.2); CREATININE FOR GFR 1.9 MG/DL (0.55-1.30); GLOMERULAR FILTRATION RATE 27.2 (>39); POTASSIUM SERUM 4.4 MMOL/L (3.5-5.1); TOTAL PROTEIN 5.8 G/DL (5.7-8.2)
== END ==
LOC: M SFHCCAPE 14:11
PROVIDERS: ATTEND Physician Assistant Medical
DX: N18.4 Chronic kidney disease, stage 4 (severe) (principal)

== ENCOUNTER 2023-10-02 01:19 | Emergency (ER) | payer MEDICARE ==
[~2023-10-02] VITALS: Ht 152.4 cm; Wt 90.9 kg
[~2023-10-02 01:19] MED LIST changes: -POTA10CA60 PO; +POTA10CA70 PO; +ROSU5TAB40 PO; -ROSU5TAB5 PO
[2023-10-02 02:49] LABS: BASO % 0.4 % (0.0-1.0); EOS # 0.1 10^3/uL (0.0-0.5); EOS % 1.8 % (0.0-3.0); HEMATOCRIT 33.7 % (36.0-47.0); HEMOGLOBIN 10.8 g/dl (12.0-15.5); LYMPH # 1.1 10^3/uL (1.5-5.0); LYMPH % 13.4 % (24.0-44.0); MEAN CORPUSCULAR HEMOGLOBIN 29.8 pg (27.0-33.0); MEAN CORPUSCULAR VOLUME 92.8 fl (80.0-96.0); MONO # 0.5 10^3/uL (0.0-0.8); MONO % 6.4 % (2.0-8.0); NEUTROPHILS # 6.1 10^3/uL (1.5-8.5); NEUTROPHILS % 77.4 % (36.0-66.0); PLATELET COUNT, AUTOMATED 128 10^3/uL (150-450); RED BLOOD COUNT 3.63 10^6/uL (4.00-5.40); WHITE BLOOD COUNT 7.9 10^3/uL (4.0-10.0)
[2023-10-02 03:16] LABS: CK-MB VALUE MASS < 1.0 NG/ML (<3.6)
[2023-10-02 03:17] LABS: BLOOD UREA NITROGEN 49 MG/DL (9-23); CALCIUM LEVEL 8.2 MG/DL (8.3-10.6); CARBON DIOXIDE LEVEL 28 MMOL/L (20-31); CHLORIDE LEVEL 103 MMOL/L (98-107); CPK CREATINE PHOSPHOKINASE 50 U/L (34-145); CREATININE FOR GFR 1.84 MG/DL (0.55-1.30); GLOMERULAR FILTRATION RATE 28.2 (>39); GLUCOSE, FASTING 185 MG/DL (74-106); POTASSIUM SERUM 3.5 MMOL/L (3.5-5.1); SODIUM LEVEL 141 MMOL/L (136-145)
[2023-10-02 04:34] VITALS: BP 137/62; TEMP 98.1; O2SAT 93
== END 2023-10-02 05:00 | disposition home or self-care (01) ==
LOC: EDBD 01:19 → M ED 01:19
DX: R07.9 Chest pain, unspecified (principal); M25.512 Pain in left shoulder; I48.91 Unspecified atrial fibrillation; I25.2 Old myocardial infarction; E11.9 Type 2 diabetes mellitus without complications; I10 Essential (primary) hypertension; E78.5 Hyperlipidemia, unspecified; K21.9 Gastro-esophageal reflux disease without esophagitis; D64.9 Anemia, unspecified; Z79.01 Long term (current) use of anticoagulants; Z88.6 Allergy status to analgesic agent; Z79.899 Other long term (current) drug therapy

== ENCOUNTER 2024-04-13 10:54 | Inpatient (IN) | payer MEDICARE ==
[~2024-04-13] VITALS: Ht 152.4 cm; Wt 98.2 kg
[~2024-04-13 10:54] MED LIST changes: -ROSU5TAB40 PO; +ROSU5TAB49 PO; +VANC250C12 PO; -VANC250C3 PO
[2024-04-13] MEDS: FUROSEMIDE 40MG/4ML VIAL IV ONE (12:23)
[2024-04-13 12:34] LABS: BASO % 0.4 % (0.0-1.0); EOS # 0.1 10^3/uL (0.0-0.5); EOS % 1.5 % (0.0-3.0); HEMATOCRIT 37.6 % (36.0-47.0); HEMOGLOBIN 11.7 g/dl (12.0-15.5); LYMPH # 0.8 10^3/uL (1.5-5.0); LYMPH % 9.7 % (24.0-44.0); MEAN CORPUSCULAR HEMOGLOBIN 29.6 pg (27.0-33.0); MEAN CORPUSCULAR HGB CONC 31.1 g/dl (32.0-36.5); MEAN CORPUSCULAR VOLUME 95.2 fl (80.0-96.0); MONO # 0.5 10^3/uL (0.0-0.8); MONO % 6.4 % (2.0-8.0); NEUTROPHILS # 6.3 10^3/uL (1.5-8.5); NEUTROPHILS % 81.5 % (36.0-66.0); PLATELET COUNT, AUTOMATED 123 10^3/uL (150-450); RED BLOOD COUNT 3.95 10^6/uL (4.00-5.40); WHITE BLOOD COUNT 7.8 10^3/uL (4.0-10.0)
[2024-04-13 13:07] LABS: ALBUMIN 2.8 G/DL (3.2-5.2); BILIRUBIN,DIRECT 0.3 MG/DL (<0.4); BILIRUBIN,TOTAL 0.6 MG/DL (0.3-1.2); CALCIUM LEVEL 9.4 MG/DL (8.3-10.6); CREATININE FOR GFR 1.8 MG/DL (0.55-1.30); GLOMERULAR FILTRATION RATE 28.9 (>39); POTASSIUM SERUM 3.8 MMOL/L (3.5-5.1); TOTAL PROTEIN 6.3 G/DL (5.7-8.2)
[2024-04-13] MEDS ORDERED: HOME MED LIST COMPLETE! XX SCH (14:05)
[2024-04-13] MEDS: CARVedilol 12.5 MG TAB PO ONE (14:36)
[2024-04-13] MEDS ORDERED: GLUCAGON INJ 1MG VIAL SC PRN (16:20)
[2024-04-13] MEDS ORDERED: ACETAMINOPHEN 325 MG TAB PO PRN (16:20)
[2024-04-13] MEDS ORDERED: DEXTROSE 50% 50ML SYRINGE IV PRN (16:20)
[2024-04-13] MEDS ORDERED: MOM 30ML SUSPENSION UDC PO PRN (16:20)
[2024-04-13] MEDS ORDERED: MAALOX 30 ML SUSP *UDC PO PRN (16:20)
[2024-04-13] MEDS ORDERED: GLUCOSE 4 GM CHEW PO PRN (16:20)
[2024-04-13 17:06] LABS: MAGNESIUM LEVEL 1.7 MG/DL (1.8-2.4)
[2024-04-13 17:11] LABS: THYROID STIMULATING HORMONE 1.959 uIU/ML (0.55-4.78)
[2024-04-13] MEDS: INSULIN LISPRO (NovoLOG) PER UNIT SC SCH ×2 (17:18→20:37)
[2024-04-13] MEDS: FUROSEMIDE 40MG/4ML VIAL IV SCH (17:27)
[2024-04-13] MEDS: FERROUS SULFATE 325MG TAB PO SCH (17:27)
[2024-04-13] MEDS: DAPAGLIFLOZIN PROPANEDIOL 10MG TABLET (FARXIGA) PO SCH (17:27)
[2024-04-13] MEDS: allopurinoL 100 MG TAB PO SCH (17:27)
[2024-04-13 17:55] VITALS: BP 140/92; TEMP 97; O2SAT 91
[2024-04-13 20:00] VITALS: BP 140/73; TEMP 97.2; O2SAT 90
[2024-04-13] MEDS: DOCUSATE SODIUM 100MG CAPSULE PO SCH (20:47)
[2024-04-13] MEDS: OMEPRAZOLE 20MG CAP PO SCH (20:47)
[2024-04-13] MEDS: MAGNESIUM OXIDE 400MG TAB (MAG-OX) PO SCH (20:47)
[2024-04-13] MEDS: RIVAROXABAN 15MG TAB (XARELTO) PO SCH (20:47)
[2024-04-13] MEDS: CARVedilol 12.5 MG TAB PO SCH (20:47)
[2024-04-13] MEDS: ROSUVASTATIN 10 MG TAB (CRESTOR) PO SCH (20:49)
[2024-04-13] MEDS ORDERED: ROSUVASTATIN 10 MG TAB (CRESTOR) PO SCH (21:00)
[2024-04-14 04:00] VITALS: BP 127/62; TEMP 97; O2SAT 90
[2024-04-14] MEDS ORDERED: diphenhydrAMINE CREAM 30GM TOP PRN (04:35)
[2024-04-14 06:08] LABS: HEMATOCRIT 35.6 % (36.0-47.0); HEMOGLOBIN 11.3 g/dl (12.0-15.5); MEAN CORPUSCULAR HEMOGLOBIN 29.8 pg (27.0-33.0); MEAN CORPUSCULAR HGB CONC 31.7 g/dl (32.0-36.5); MEAN CORPUSCULAR VOLUME 93.9 fl (80.0-96.0); PLATELET COUNT, AUTOMATED 124 10^3/uL (150-450); RED BLOOD COUNT 3.79 10^6/uL (4.00-5.40); WHITE BLOOD COUNT 6.2 10^3/uL (4.0-10.0)
[2024-04-14 06:58] LABS: ALBUMIN 2.7 G/DL (3.2-5.2); BILIRUBIN,TOTAL 0.6 MG/DL (0.3-1.2); CALCIUM LEVEL 9.7 MG/DL (8.3-10.6); CREATININE FOR GFR 1.92 MG/DL (0.55-1.30); GLOMERULAR FILTRATION RATE 26.8 (>39); MAGNESIUM LEVEL 1.8 MG/DL (1.8-2.4); POTASSIUM SERUM 3.3 MMOL/L (3.5-5.1); TOTAL PROTEIN 5.9 G/DL (5.7-8.2)
[2024-04-14] MEDS: POTASSIUM CHLORIDE 10MEQ SR TABLET PO SCH (08:49)
[2024-04-14] MEDS: MULTIVITAMINS/MINERALS THERAP 1 TAB PO SCH (08:50)
[2024-04-14] MEDS: OMEGA-3 1000MG CAPSULE PO SCH (08:51)
[2024-04-14 12:00] VITALS: BP 131/63; TEMP 97; O2SAT 94
[2024-04-14] MEDS: FUROSEMIDE 40MG/4ML VIAL IV SCH (15:13)
[2024-04-14] MEDS: ONDANSETRON 4MG 2ML VIAL IV ONE (19:35)
[2024-04-14 20:00] VITALS: BP 128/62; TEMP 97; O2SAT 91
[2024-04-15 04:00] VITALS: BP 123/61; TEMP 97.2; O2SAT 90
[2024-04-15 07:20] VITALS: O2SAT 82
[2024-04-15 07:21] VITALS: O2SAT 92
[2024-04-15] MEDS ORDERED: MAG SULF 1GM/100ML (MAG RUN) 1 GM in IV 1 EA IV SCH (08:00)
[2024-04-15 08:17] LABS: HEMATOCRIT 37.8 % (36.0-47.0); HEMOGLOBIN 11.7 g/dl (12.0-15.5); MEAN CORPUSCULAR HEMOGLOBIN 29.4 pg (27.0-33.0); PLATELET COUNT, AUTOMATED 129 10^3/uL (150-450); RED BLOOD COUNT 3.98 10^6/uL (4.00-5.40); WHITE BLOOD COUNT 6.3 10^3/uL (4.0-10.0)
[2024-04-15 08:42] LABS: CALCIUM LEVEL 9.6 MG/DL (8.3-10.6); CREATININE FOR GFR 2.14 MG/DL (0.55-1.30); GLOMERULAR FILTRATION RATE 23.7 (>39); MAGNESIUM LEVEL 2.4 MG/DL (1.8-2.4); POTASSIUM SERUM 3.2 MMOL/L (3.5-5.1)
[2024-04-15 12:00] VITALS: BP 126/73; TEMP 97; O2SAT 92
[2024-04-15] MEDS: FUROSEMIDE injection 100 MG, VIAL 2 BAG 13MM ADAPTER 1 EACH in D5W 100 ML IV SCH (14:07)
[2024-04-15] MEDS: POTASSIUM CHLORIDE 10MEQ SR TABLET PO SCH (16:34)
[2024-04-15] MEDS: SPIRONOLACTONE 25 MG TAB PO SCH (16:34)
[2024-04-15 20:00] VITALS: BP 122/64; TEMP 97; O2SAT 93
[2024-04-16 04:00] VITALS: BP 123/66; TEMP 97; O2SAT 91
[2024-04-16 04:35] VITALS: O2SAT 73
[2024-04-16 04:36] VITALS: O2SAT 92
[2024-04-16 06:28] LABS: CALCIUM LEVEL 9.5 MG/DL (8.3-10.6); CREATININE FOR GFR 2.4 MG/DL (0.55-1.30); GLOMERULAR FILTRATION RATE 20.7 (>39); POTASSIUM SERUM 3.9 MMOL/L (3.5-5.1)
[2024-04-16 11:31] LABS: FERRITIN 47.8 NG/ML (7.3-270.7)
[2024-04-16 11:51] LABS: FOLATE 7.92 NG/ML (>5.4); MAGNESIUM LEVEL 2.5 MG/DL (1.8-2.4); PERCENT SATURATION 12.2 % (13.2-45.0)
[2024-04-16 12:00] VITALS: BP 114/64; TEMP 97; O2SAT 94
[2024-04-16] MEDS: FERRIC CARBOXYMALTOSE INJ 750 MG in SODIUM CHLORIDE 0.9% INJ 100 ML IV ONE (16:20)
[2024-04-16 20:00] VITALS: BP 127/59; TEMP 97.2; O2SAT 93
[2024-04-16] MEDS: NYSTATIN 100,000 UNITS/GM TOPICAL PWD 15GM TOP SCH (21:27)
[2024-04-17 04:00] VITALS: BP 123/62; TEMP 97; O2SAT 93
[2024-04-17 06:07] LABS: HEMATOCRIT 37.3 % (36.0-47.0); HEMOGLOBIN 11.9 g/dl (12.0-15.5); MEAN CORPUSCULAR HEMOGLOBIN 29.5 pg (27.0-33.0); MEAN CORPUSCULAR HGB CONC 31.9 g/dl (32.0-36.5); MEAN CORPUSCULAR VOLUME 92.6 fl (80.0-96.0); PLATELET COUNT, AUTOMATED 150 10^3/uL (150-450); RED BLOOD COUNT 4.03 10^6/uL (4.00-5.40); WHITE BLOOD COUNT 7.3 10^3/uL (4.0-10.0)
[2024-04-17 06:29] LABS: CALCIUM LEVEL 9.8 MG/DL (8.3-10.6); CREATININE FOR GFR 2.43 MG/DL (0.55-1.30); GLOMERULAR FILTRATION RATE 20.4 (>39); MAGNESIUM LEVEL 2.7 MG/DL (1.8-2.4)
[2024-04-17 12:00] VITALS: BP 123/67; TEMP 97; O2SAT 91
[2024-04-17 17:22] VITALS: BP 123/65
[2024-04-17 20:00] VITALS: BP 134/83; TEMP 97.2; O2SAT 92
[2024-04-18 04:15] VITALS: BP 125/66; TEMP 97; O2SAT 91
[2024-04-18 06:49] LABS: CALCIUM LEVEL 10.1 MG/DL (8.3-10.6); CREATININE FOR GFR 2.51 MG/DL (0.55-1.30); GLOMERULAR FILTRATION RATE 19.7 (>39); MAGNESIUM LEVEL 2.6 MG/DL (1.8-2.4); POTASSIUM SERUM 4.2 MMOL/L (3.5-5.1)
[2024-04-18 12:10] VITALS: BP 120/67; TEMP 97; O2SAT 93
[2024-04-18] MEDS ORDERED: ELIQ5TAB PO (13:50)
[2024-04-18 17:44] VITALS: BP 119/69
[2024-04-18 20:00] VITALS: BP 119/70; TEMP 97; O2SAT 92
[2024-04-18] MEDS: APIXABAN 5 MG TAB (ELIQUIS) PO SCH (21:06)
[2024-04-19 04:00] VITALS: BP 125/68; TEMP 97; O2SAT 91
[2024-04-19 06:55] LABS: CALCIUM LEVEL 10.4 MG/DL (8.3-10.6); CREATININE FOR GFR 2.69 MG/DL (0.55-1.30); GLOMERULAR FILTRATION RATE 18.2 (>39); MAGNESIUM LEVEL 2.7 MG/DL (1.8-2.4); POTASSIUM SERUM 4.9 MMOL/L (3.5-5.1)
[2024-04-19 08:00] VITALS: BP 127/81; TEMP 96.8; O2SAT 93
[2024-04-19] MEDS: TORSEMIDE (DEMADEX) 50 MG PER 1/2 TAB PO SCH (08:42)
[2024-04-19 12:00] VITALS: BP 115/66; TEMP 97; O2SAT 92
[2024-04-19 14:30] VITALS: BP 115/68; TEMP 97.2; O2SAT 92
[2024-04-19 20:10] VITALS: BP 122/69; TEMP 97; O2SAT 94
[2024-04-20 04:40] VITALS: BP 123/70; TEMP 97.5; O2SAT 94
[2024-04-20 06:11] LABS: HEMATOCRIT 40.6 % (36.0-47.0); HEMOGLOBIN 13.2 g/dl (12.0-15.5); MEAN CORPUSCULAR HEMOGLOBIN 30.1 pg (27.0-33.0); MEAN CORPUSCULAR HGB CONC 32.5 g/dl (32.0-36.5); MEAN CORPUSCULAR VOLUME 92.7 fl (80.0-96.0); PLATELET COUNT, AUTOMATED 172 10^3/uL (150-450); RED BLOOD COUNT 4.38 10^6/uL (4.00-5.40); WHITE BLOOD COUNT 9.5 10^3/uL (4.0-10.0)
[2024-04-20 06:40] LABS: CALCIUM LEVEL 10.2 MG/DL (8.3-10.6); CREATININE FOR GFR 2.97 MG/DL (0.55-1.30); GLOMERULAR FILTRATION RATE 16.2 (>39); MAGNESIUM LEVEL 2.5 MG/DL (1.8-2.4); POTASSIUM SERUM 4.1 MMOL/L (3.5-5.1)
[2024-04-20 08:26] VITALS: BP 118/68
[2024-04-20] MEDS: TORSEMIDE 20 MG TAB PO SCH (08:26)
[2024-04-20] MEDS ORDERED: ROSU10TA61 PO (11:31)
[2024-04-20] MEDS ORDERED: ALDA25TA2 PO (11:31)
[2024-04-20] MEDS ORDERED: TORS20TA2 PO ×2 (11:31→11:45)
[2024-04-20] MEDS ORDERED: MAGN1TAB26 PO (11:46)
[2024-04-20] MEDS ORDERED: ROSU20TA86 PO (11:48)
[2024-04-20 12:00] VITALS: BP 115/65; TEMP 97; O2SAT 94
== END 2024-04-20 13:48 | disposition home health service (06) | DRG 291 ==
LOC: M ED 10:54 → EDBD 10:54 → M ED INP 16:27 → M MSPAV 17:54
PROVIDERS: ADMIT Student in an Organized Health Care Education/Training Program; ATTEND Internal Medicine
DX: I13.0 Hypertensive heart and chronic kidney disease with heart failure and stage 1 through stage 4 chronic kidney disease, or unspecified chronic kidney disease (principal); I50.23 Acute on chronic systolic (congestive) heart failure; N17.9 Acute kidney failure, unspecified; I31.39 Other pericardial effusion (noninflammatory); N18.4 Chronic kidney disease, stage 4 (severe); E11.51 Type 2 diabetes mellitus with diabetic peripheral angiopathy without gangrene; E11.22 Type 2 diabetes mellitus with diabetic chronic kidney disease; I35.0 Nonrheumatic aortic (valve) stenosis; E78.5 Hyperlipidemia, unspecified; I25.10 Atherosclerotic heart disease of native coronary artery without angina pectoris; K21.9 Gastro-esophageal reflux disease without esophagitis; I44.7 Left bundle-branch block, unspecified; I48.91 Unspecified atrial fibrillation; D50.9 Iron deficiency anemia, unspecified; E66.9 Obesity, unspecified; E87.6 Hypokalemia; E83.42 Hypomagnesemia; M10.9 Gout, unspecified; Z88.6 Allergy status to analgesic agent; Z79.899 Other long term (current) drug therapy; K57.90 Diverticulosis of intestine, part unspecified, without perforation or abscess without bleeding; Z95.2 Presence of prosthetic heart valve; Z87.891 Personal history of nicotine dependence

== ENCOUNTER 2024-09-09 23:02 | Emergency (ER) | payer MEDICARE ==
[~2024-09-09] VITALS: Ht 152.4 cm; Wt 90.7 kg
[~2024-09-09 23:02] MED LIST changes: +ALDA25TA2 PO; +ELIQ5TAB PO; +GLIP-318 PO; -GLIP5TAB20 PO; +ROSU10TA61 PO; +ROSU20TA86 PO; +TORS20TA2 PO
[2024-09-10] MEDS ORDERED: PRED10TA2 PO (02:03)
[2024-09-10] MEDS: predniSONE 20 MG TAB PO ONE (02:29)
[2024-09-10 02:32] VITALS: BP 122/60; TEMP 97.6; O2SAT 99
== END 2024-09-10 02:38 | disposition home or self-care (01) ==
LOC: M ED 23:02
DX: R21 Rash and other nonspecific skin eruption (principal); I11.0 Hypertensive heart disease with heart failure; E11.51 Type 2 diabetes mellitus with diabetic peripheral angiopathy without gangrene; E78.5 Hyperlipidemia, unspecified; E55.9 Vitamin D deficiency, unspecified; K21.9 Gastro-esophageal reflux disease without esophagitis; Z79.84 Long term (current) use of oral hypoglycemic drugs; Z79.899 Other long term (current) drug therapy; Z88.6 Allergy status to analgesic agent
CPT/HCPCS: 99283; J7512

== ENCOUNTER 2025-03-05 16:39 | Emergency (ER) | payer MEDICARE ==
[~2025-03-05 16:39] MED LIST changes: +CEFD1CAP9 PO; +MAG-400T7 PO; +PRED10TA2 PO; +SPIR-10 PO
[2025-03-05 16:58] VITALS: TEMP 97
[2025-03-05 17:47] LABS: BASO # 0.0 10^3/uL (0.0-0.2); BASO % 0.7 % (0.0-1.0); EOS # 0.1 10^3/uL (0.0-0.5); EOS % 2.1 % (0.0-3.0); LYMPH # 0.7 10^3/uL (1.5-5.0); LYMPH % 12.6 % (24.0-44.0); MONO # 0.4 10^3/uL (0.0-0.8); MONO % 6.6 % (2.0-8.0); NEUTROPHILS # 4.5 10^3/uL (1.5-8.5); NEUTROPHILS % 77.7 % (36.0-66.0); PLATELET COUNT, AUTOMATED 135 10^3/uL (150-450)
[2025-03-05 18:00] LABS: ALT/SGPT 13.0 U/L (7.0-40); AST/SGOT 12.0 U/L (<34); CALCIUM LEVEL 9.5 MG/DL (8.3-10.6); CARBON DIOXIDE LEVEL 28.0 MMOL/L (20-31); CHLORIDE LEVEL 104.0 MMOL/L (98-107); CREATININE FOR GFR 1.81 MG/DL (0.55-1.30); GLOMERULAR FILTRATION RATE 27.9 (>32); POTASSIUM SERUM 3.6 MMOL/L (3.5-5.1); SODIUM LEVEL 143.0 MMOL/L (136-145)
[2025-03-05 21:15] VITALS: BP 144/65
[2025-03-05] MEDS: FUROSEMIDE 40 MG/4 ML VIAL IV ONE (21:15)
[2025-03-05 21:25] LABS: CK-MB VALUE MASS < 1.0 NG/ML (<3.6)
[2025-03-05 21:28] LABS: CPK CREATINE PHOSPHOKINASE 23 U/L (34-145)
[2025-03-05 22:00] VITALS: BP 130/63; O2SAT 94
== END 2025-03-05 22:27 | disposition home or self-care (01) ==
LOC: EDBD 16:39 → M ED 16:39
DX: I50.9 Heart failure, unspecified (principal); R06.00 Dyspnea, unspecified; I48.91 Unspecified atrial fibrillation; I25.10 Atherosclerotic heart disease of native coronary artery without angina pectoris; I25.2 Old myocardial infarction; I10 Essential (primary) hypertension; E78.5 Hyperlipidemia, unspecified; E11.9 Type 2 diabetes mellitus without complications; K21.9 Gastro-esophageal reflux disease without esophagitis; Z95.5 Presence of coronary angioplasty implant and graft; Z79.84 Long term (current) use of oral hypoglycemic drugs; Z79.899 Other long term (current) drug therapy; Z88.6 Allergy status to analgesic agent
CPT/HCPCS: 36415; 71045; 80048; 80076; 82550; 82553; 83605; 83880; 84484; 85025; 87040; 87486; 87581; 87633; 87798; 93005; 93041; 93971; 94760; 96374; 99285; J1938